=== PATIENT | male | born 1935 | race Caucasian/White ===

== ENCOUNTER 2021-04-24 20:25 | Inpatient (IN) ==
--- NOTE | 2021-04-24 22:09 | DR.GENAD ---
HPI Time Seen Time Seen by Provider: 04/24/21 22:07 PCP Primary Care Physician: GLYNN HPI Comment HPI Comment: He comes in with his c/o cough, fever and sob x five days; says he feels fine otherwise and denies body aches, cp, sob, abd pain, n/v/d; says he used otc test for covid and it was positive as was his 's. Complaint/Symptoms Chief Complaint:: PT IN ED WITH C/O TESTING POSITIVE FOR COVID TODAY. PT C/O COUGH, FEVER AND SOB. COVID-19 Coronavirus risk:travel/contact w/high risk person: Yes Has patient experienced Coronavirus symptoms: Yes Coronavirus symptoms experienced: Fever, Coughing and Shortness of Breath Source History Provided: Patient Mode of Arrival Mode of Arrival: Ambulatory Timing Onset of Chief Complaint: 04/21/21 PMH PMH Past Medical History: No Past Surgical History: No Surgical History: No History Family History History of Family Medical Conditions: Yes Family Medical History: Cancer and Hypertension Social History Does patient currently use any type of tobacco product: No Have you used tobacco products in the last 12 months: No Type of Tobacco Use: None Does any household member use tobacco: No Alcohol Use: None Do you use any recreational Drugs:: No Lives With: Spouse Lives Where: Home Travel Risk Coronavirus risk:travel/contact w/high risk person: Yes Has patient experienced Coronavirus symptoms: Yes Coronavirus symptoms experienced: Fever, Coughing and Shortness of Breath Infectious screening In the last 2 months have you had wt loss of >10#?: NO Have you had fever, night sweats or hemotysis?: No Have you traveled outside the country in the last 6 months?: No Isolation: Droplet ROS Review of Systems Eyes: No Symptoms Reported ENTM: No Symptoms Reported Cardiovascular: No Symptoms Reported Gastrointestinal/Abdominal: No Symptoms Reported Genitourinary: No Symptoms Reported Neurological: No Symptoms Reported Musculoskeletal: No Symptoms Reported Integumentary: No Symptoms Reported Hematologic/Lymphatic: No Symptoms Reported Endocrine: No Symptoms Reported Psychiatric: No Symptoms Reported PE Vital Signs Vitals: Temperature 100.3 F Pulse Rate [Right Brachial] 83 Pulse Rate 95 Respiratory Rate 22 Blood Pressure [Right Arm] 133/61 Blood Pressure 156/70 O2 Sat by Pulse Oximetry 89 General Limitations: No Limitations General Appearance: Alert and In No Apparent Distress Head Head Exam: Normal Inspection Eyes Eye exam: Normal Appearance Neck Neck Exam: Normal Inspection Chest Chest Inspection: Normal Inspection Respiratory Respiratory Exam: Bilateral: Wheezing (scattered) Cardiovascular Cardiovascular Exam: Regular Rate and Normal Rhythm Abdominal Exam Abdominal Exam: Normal Inspection, Normal Bowel Sounds and Soft Extremities Extremities Exam: Normal Inspection Back Back Exam: Normal Inspection Neurologic Neurological Exam: Alert and Oriented X3 Psychiatric Psychiatric Exam: Normal Affect and Normal Mood Skin Skin Exam: Warm, Dry, Intact and Normal Color COURSE Consultation Call Returned: 23:50 (Dr Wei accepts.) ROR Labs Reviewed Laboratory Results Reviewed?: Yes Result Diagrams: 04/24/21 22:16 04/24/21 22:16 Laboratory: WBC 8.2 X10^3/uL (3.6-10.0) 04/24/21 22:16 RBC 4.43 X10^6/uL (4.7-6.0) L 04/24/21 22:16 Hgb 14.5 g/dL (13.5-18.0) 04/24/21 22:16 Hct 40.6 % (42.0-54.0) L 04/24/21 22:16 MCV 91.5 fL (80.0-100.0) 04/24/21 22:16 MCH 32.8 pg (27.0-34.0) 04/24/21 22:16 MCHC 35.8 g/dL (33.0-35.0) H 04/24/21 22:16 RDW 13.4 % (11.6-16.5) 04/24/21 22:16 Plt Count 149 X10^3/uL (150.0-450.0) L 04/24/21 22:16 Plt Count Comment Decreased (ADEQUATE) 04/24/21 22:16 MPV 9.1 fL (7.4-11.0) 04/24/21 22:16 Neut % (Auto) 90.5 % (42.0-75.0) H 04/24/21 22:16 Lymph % (Auto) 5.7 % (21.0-51.0) L 04/24/21 22:16 [place] % (Auto) 3.6 % (0.0-13.0) 04/24/21 22:16 Eos % (Auto) 0.0 % (0.9-2.9) L 04/24/21 22:16 Baso % (Auto) 0.2 % (0.2-1.0) 04/24/21 22:16 Neut # (Auto) 7.4 x10^3/uL (2.2-4.8) H 04/24/21 22:16 Lymph # (Auto) 0.5 X10^3/uL (1.3-2.9) L 04/24/21 22:16 [place] # (Auto) 0.3 x10^3/uL (0.3-0.8) 04/24/21 22:16 Eos # (Auto) 0.0 x10^3/uL (0.0-0.2) 04/24/21 22:16 Baso # (Auto) 0.0 X10^3/uL (0.0-0.1) 04/24/21 22:16 Absolute Nucleated RBC 0.2 /100WBC 04/24/21 22:16 Total Counted 100 04/24/21 22:16 Neutrophils % (Manual) 90 % (39-76) H 04/24/21 22:16 Lymphocytes % (Manual) 8 % (13-43) L 04/24/21 22:16 Monocytes % (Manual) 2 % (4-9) L 04/24/21 22:16 Plt Morphology Comment Normal (NORMAL) 04/24/21 22:16 RBC Morphology Normal (NORMAL) 04/24/21 22:16 Sample Site Rr 04/24/21 22:07 ABG pH 7.540 (7.35-7.45) H 04/24/21 22:07 ABG pCO2 24.0 mmHg (35.0-45.0) L 04/24/21 22:07 ABG pO2 56.0 mmHg (80.0-100.0) L 04/24/21 22:07 ABG HCO3 20.5 mmol/L (22-26) L 04/24/21 22:07 ABG O2 Saturation 92.0 % (90-100) 04/24/21 22:07 ABG Base Excess -0.6 mmol/L (-2.0-2.0) 04/24/21 22:07 Jag Test Pos 04/24/21 22:07 A-a Gradient 64.0 mmHg 04/24/21 22:07 FiO2 21.0 04/24/21 22:07 Blood Gas Comments Terri well sw 04/24/21 22:07 Sodium 134 mmol/L (136-145) L 04/24/21 22:16 Corrected Sodium TNP 04/24/21 22:16 Potassium 3.6 mmol/L (3.5-5.1) 04/24/21 22:16 Chloride 99 mmol/L (98-107) 04/24/21 22:16 Carbon Dioxide 25.9 mmol/L (21-32) 04/24/21 22:16 BUN 14 mg/dL (7-18) 04/24/21 22:16 Creatinine 1.28 mg/dL (0.70-1.30) 04/24/21 22:16 Est GFR (MDRD) Af Amer > 60 (>60) 04/24/21 22:16 Est GFR (MDRD) Non-Af 57 (>60) L 04/24/21 22:16 Glucose 96 mg/dL (65-99) 04/24/21 22:16 Calcium 7.7 mg/dL (8.5-10.1) L 04/24/21 22:16 Corrected Calcium 8.7 mg/dL (8.5-10.1) 04/24/21 22:16 Total Bilirubin 0.50 mg/dL (0.2-1.0) 04/24/21 22:16 AST 72 Units/L (15-37) H 04/24/21 22:16 ALT 35 Units/L (12-78) 04/24/21 22:16 Alkaline Phosphatase 54 Units/L (46-116) 04/24/21 22:16 Total Protein 6.3 g/dL (6.4-8.2) L 04/24/21 22:16 Albumin 2.8 g/dL (3.4-5.0) L 04/24/21 22:16 Globulin 3.5 g/dL (2.5-4.5) 04/24/21 22:16 Albumin/Globulin Ratio 0.8 Ratio (1.1-2.1) L 04/24/21 22:16 SARS-CoV-2 (PCR) Positive (NEGATIVE) A 04/24/21 21:30 Influenza Type A (PCR) Negative (NEGATIVE) 04/24/21 21:30 Influenza Type B (PCR) Negative (NEGATIVE) 04/24/21 21:30 RSV (PCR) Negative (NEGATIVE) 04/24/21 21:30 XRAY XRAY Interpreted by: Radiologist X-ray Results: pcxr: 1. Bibasilar pneumonia greatest on the left. 2. COPD. Opioid Opioid Risk Tool Age (Esteban box if 16-45): No History of Preadolescent Sexual Abuse: No Total: 0 Total Score Risk Category: Low Risk Copyright: Mustapha LOPEZ predicting aberrant behaviors Diagnosis Discharge Problem: Hypoxia, COPD exacerbation Pneumonia Qualifiers: Pneumonia type: due to unspecified organism Laterality: bilateral Lung location: lower lobe of lung Qualified Code(s): J18.9 - Pneumonia, unspecified organism
[2021-04-24 22:45] LABS: BASOPHILS % (AUTO) 0.2 % (0.2-1.0); HEMATOCRIT 40.6 % (42.0-54.0); HEMOGLOBIN 14.5 g/dL (13.5-18.0); LYMPHOCYTES # (AUTO) 0.5 X10^3/uL (1.3-2.9); LYMPHOCYTES % (AUTO) 5.7 % (21.0-51.0); MEAN CORPUSCULAR HEMOGLOBIN 32.8 pg (27.0-34.0); MEAN CORPUSCULAR HGB CONC 35.8 g/dL (33.0-35.0); MEAN CORPUSCULAR VOLUME 91.5 fL (80.0-100.0); MEAN PLATELET VOLUME 9.1 fL (7.4-11.0); MONOCYTES # (AUTO) 0.3 x10^3/uL (0.3-0.8); MONOCYTES % (AUTO) 3.6 % (0.0-13.0); NEUTROPHILS # (AUTO) 7.4 x10^3/uL (2.2-4.8); NEUTROPHILS % (AUTO) 90.5 % (42.0-75.0); PLATELET COUNT 149 X10^3/uL (150.0-450.0); RED BLOOD COUNT 4.43 X10^6/uL (4.7-6.0); RED CELL DISTRIBUTION WIDTH 13.4 % (11.6-16.5); WHITE BLOOD COUNT 8.2 X10^3/uL (3.6-10.0)
[2021-04-24 22:52] LABS: ALANINE AMINOTRANSFERASE 35 Units/L (12-78); ALBUMIN 2.8 g/dL (3.4-5.0); ALKALINE PHOSPHATASE 54 Units/L (46-116); ASPARTATE AMINO TRANSFERASE 72 Units/L (15-37); BLOOD UREA NITROGEN 14 mg/dL (7-18); CALCIUM 7.7 mg/dL (8.5-10.1); CARBON DIOXIDE 25.9 mmol/L (21-32); CHLORIDE 99 mmol/L (98-107); COR CA(FOR HYPOALB) 8.7 mg/dL (8.5-10.1); CREATININE 1.28 mg/dL (0.70-1.30); SODIUM 134 mmol/L (136-145); TOTAL PROTEIN 6.3 g/dL (6.4-8.2); eGFR NON BLACK RACES 57 (>60)
--- NOTE | 2021-04-24 22:52 | RAD ---
PROCEDURE: Chest X-ray 1 View .HISTORY: Dyspnea and cough with COVID-19.TECHNIQUE: AP portable view done at 10:27 p.m..COMPARISON: None .TECHNICAL QUALITY: Satisfactory .FINDINGS:Normal size heart .Mediastinum and hilar regions show no masses or lymphadenopathy .Normal central vascularity .Moderate left basilar consolidation consistent with pneumonia. Possible mild consolidation right base laterally versus chest wall. Some hyperlucency upper lung valentine consistent with emphysematous changes. No pleural fluid, mass, or pneumothorax.No acute bony abnormality .IMPRESSION:1. Bibasilar pneumonia greatest on the left.2. COPD.Electronically signed by: Jhoan Moore (Apr 24, 2021 22:50:53)
[2021-04-24 22:53] LABS: ABG ALLEN TEST POS; ABG BASE EXCESS -0.6 mmol/L (-2.0-2.0); ABG HCO3 20.5 mmol/L (22-26)
[2021-04-24] MEDS ORDERED: ZOFRAN INJ 4 MG VIAL IVP PRN (23:57)
[2021-04-24] MEDS ORDERED: TYLENOL 325 MG TAB PO PRN (23:57)
[2021-04-25 00:06] LABS: PLATELET MORPHOLOGY COMMENT NORMAL (NORMAL)
[2021-04-25] MEDS ORDERED: NS 1000 ML 1,000 ML ONE (01:01)
[2021-04-25] MEDS: NS 1000 ML 1,000 ML IV SCH ×2 (01:20→11:49)
[2021-04-25] MEDS ORDERED: NS 100 ML IV + SPIKE MINIBAG* 100 ML IV ONE (01:23)
[2021-04-25] MEDS ORDERED: ZOSYN VIAL 2.25 GRAMS ONE (01:23)
[2021-04-25] MEDS: ZOSYN VIAL 2.25 GRAMS 2.25 G in NS 100 ML IV + SPIKE MINIBAG* 100 ML IV SCH ×4 (01:37→18:15)
[2021-04-25] MEDS: BROVANA IN SCH ×3 (02:37→21:00)
[2021-04-25] MEDS: PULMICORT NEB TX 0.5 MG NEB SCH ×3 (02:37→21:05)
[2021-04-25 06:05] LABS: BASOPHILS % (AUTO) 0.2 % (0.2-1.0); HEMATOCRIT 40.1 % (42.0-54.0); HEMOGLOBIN 14.1 g/dL (13.5-18.0); LYMPHOCYTES # (AUTO) 1.1 X10^3/uL (1.3-2.9); LYMPHOCYTES % (AUTO) 12.1 % (21.0-51.0); MEAN CORPUSCULAR HEMOGLOBIN 32.7 pg (27.0-34.0); MEAN CORPUSCULAR HGB CONC 35.1 g/dL (33.0-35.0); MEAN PLATELET VOLUME 9.6 fL (7.4-11.0); MONOCYTES # (AUTO) 0.3 x10^3/uL (0.3-0.8); NEUTROPHILS # (AUTO) 7.7 x10^3/uL (2.2-4.8); NEUTROPHILS % (AUTO) 84.7 % (42.0-75.0); PLATELET COUNT 148 X10^3/uL (150.0-450.0); RED BLOOD COUNT 4.31 X10^6/uL (4.7-6.0); RED CELL DISTRIBUTION WIDTH 13.3 % (11.6-16.5); WHITE BLOOD COUNT 9.2 X10^3/uL (3.6-10.0)
[2021-04-25 06:21] LABS: ALANINE AMINOTRANSFERASE 31 Units/L (12-78); ALBUMIN 2.5 g/dL (3.4-5.0); ALKALINE PHOSPHATASE 47 Units/L (46-116); ASPARTATE AMINO TRANSFERASE 69 Units/L (15-37); BLOOD UREA NITROGEN 15 mg/dL (7-18); CALCIUM 7.5 mg/dL (8.5-10.1); CARBON DIOXIDE 24.1 mmol/L (21-32); CHLORIDE 100 mmol/L (98-107); COR CA(FOR HYPOALB) 8.7 mg/dL (8.5-10.1); CREATININE 1.22 mg/dL (0.70-1.30); SODIUM 136 mmol/L (136-145); TOTAL PROTEIN 5.7 g/dL (6.4-8.2); eGFR NON BLACK RACES > 60 (>60)
[2021-04-25] MEDS ORDERED: REMDESIVIR 200 MG in NS 250 ML IV 250 ML IV ONE (10:07)
[2021-04-25] MEDS ORDERED: REMDESIVIR IV ONE (11:34)
[2021-04-25] MEDS ORDERED: NS 50 ML IV 50 ML IV ONE ×2 (11:34→15:25)
[2021-04-25] MEDS ORDERED: VITAMIN D3 125 mcg (5,000 UNITS) ONE (11:34)
[2021-04-25] MEDS ORDERED: ZINC SULFATE ONE (11:34)
[2021-04-25] MEDS ORDERED: ASCORBIC ACID INJ MULTI-DOSE VIAL IV ONE ×2 (11:36→15:27)
[2021-04-25] MEDS: ASCORBIC ACID INJ MULTI-DOSE VIAL 1,500 MG in NS 50 ML IV 50 ML IV SCH ×3 (11:47→20:59)
[2021-04-25] MEDS: SOLU-Medrol 125 MG VIAL IVP SCH ×3 (11:47→20:58)
[2021-04-25] MEDS: VITAMIN A PO SCH (11:47)
[2021-04-25] MEDS: ZINC SULFATE PO SCH (11:48)
[2021-04-25] MEDS: VITAMIN D3 125 mcg (5,000 UNITS) PO SCH (11:48)
[2021-04-25] MEDS ORDERED: SOLU-Medrol 40 MG VIAL ONE (15:25)
[2021-04-25] MEDS ORDERED: POTASSIUM CHL 40 MEQ/NS 0.45% 500 ML IV PRN (18:37)
[2021-04-25] MEDS ORDERED: POTASSIUM CHLORIDE LIQ 20 MEQ UDC PO PRN (18:37)
[2021-04-25] MEDS ORDERED: K-RIDER 10 MEQ/NS 100 ML 10 MEQ/100 ML BAG IV PRN (18:37)
[2021-04-25] MEDS ORDERED: MICRO K EXTEN CAP 10 MEQ PO PRN (18:37)
[2021-04-25] MEDS ORDERED: KLOR-CON PO PRN (18:37)
[2021-04-25] MEDS ORDERED: POTASSIUM CHL 60 MEQ/NS 0.45% 500 ML IV PRN (18:37)
[2021-04-25] MEDS: K-DUR TAB 20 MEQ PO PRN (20:57)
--- NOTE | 2021-04-25 21:11 | DR.H&P ---
H&P History & Physical for Day of: H&P Date: 04/25/21 Chief Complaint Chief Complaint: SOB and cough Allergies Allergies Allergy/AdvReac Type Severity Reaction Status Date / Time No Known Drug Allergies Allergy Verified 04/24/21 20:52 History of Present Illness History of Present Illness: Mr Fong is a 86y/o male with no pertinent past medical hx presented with worsening dyspnea, cough and weakness. Patient got sick a few days ago and tested positive for COVID yesterday. His was sick prior to him and also tested positive. Patient reports feeling weak and having some cough. Denies fever or chills. Patient is currently not on any medications. Family also present in room and states patient has not seen a doctor in years. He has no prior hx of covid and he is unvaccinated. ER work up - Labs: WBC 9.2 Hgb 14.1 Plt 148 Na: 136 K: 3.3 BUN/Cr: 15/1.22 COVID-19 + - AB.54/24/56/20 92% on RA - CXR: Bibasilar pneumonia greatest on the left. COPD. Patient is currently on 2L NC and he is no respiratory distress. He was started on IV antibiotics. Plan: Admit with COVID-19 protocol. Continue Zosyn, start Remdesivir and Solumedrol. Add vitamin support. Continue nebs, pulmicort and IS. Wean O2 as tolerated. Monitor respiratory status closely. Continue gentle hydration. Replace K as per protocol. PT/OT as tolerated. Monitor AM labs and imaging. Time spent for clinical assessment, reviewing labs/imaging, physical exam, decision making and documentation greater than 75 mins. Past Surgical History Surgical History: Ortho Surgery Family History Family Medical History: Cancer and Hypertension Social History Does patient currently use any type of tobacco product: No Have you used tobacco products in the last 12 months: No Type of Tobacco Use: None Does any household member use tobacco: No Alcohol Use: None Drug Use: None Prescription drug monitoring program results: PDMP reviewed and no concerns identified Medications Home Medications: No Known Drug Allergies Allergy (Verified 04/24/21 20:52) CONTINUE taking the following medications NK 04/24/21 [History] Labs Result Diagrams: 04/25/21 05:12 04/25/21 05:12 Labs: Laboratory WBC 9.2 X10^3/uL (3.6-10.0) 04/25/21 05:12 RBC 4.31 X10^6/uL (4.7-6.0) L 04/25/21 05:12 Hgb 14.1 g/dL (13.5-18.0) 04/25/21 05:12 Hct 40.1 % (42.0-54.0) L 04/25/21 05:12 MCV 93.0 fL (80.0-100.0) 04/25/21 05:12 MCH 32.7 pg (27.0-34.0) 04/25/21 05:12 MCHC 35.1 g/dL (33.0-35.0) H 04/25/21 05:12 RDW 13.3 % (11.6-16.5) 04/25/21 05:12 Plt Count 148 X10^3/uL (150.0-450.0) L 04/25/21 05:12 Plt Count Comment Decreased (ADEQUATE) 04/24/21 22:16 MPV 9.6 fL (7.4-11.0) 04/25/21 05:12 Neut % (Auto) 84.7 % (42.0-75.0) H 04/25/21 05:12 Lymph % (Auto) 12.1 % (21.0-51.0) L 04/25/21 05:12 [place] % (Auto) 3.0 % (0.0-13.0) 04/25/21 05:12 Eos % (Auto) 0.0 % (0.9-2.9) L 04/25/21 05:12 Baso % (Auto) 0.2 % (0.2-1.0) 04/25/21 05:12 Neut # (Auto) 7.7 x10^3/uL (2.2-4.8) H 04/25/21 05:12 Lymph # (Auto) 1.1 X10^3/uL (1.3-2.9) L 04/25/21 05:12 [place] # (Auto) 0.3 x10^3/uL (0.3-0.8) 04/25/21 05:12 Eos # (Auto) 0.0 x10^3/uL (0.0-0.2) 04/25/21 05:12 Baso # (Auto) 0.0 X10^3/uL (0.0-0.1) 04/25/21 05:12 Absolute Nucleated RBC 0.2 /100WBC 04/25/21 05:12 Total Counted 100 04/24/21 22:16 Neutrophils % (Manual) 90 % (39-76) H 04/24/21 22:16 Lymphocytes % (Manual) 8 % (13-43) L 04/24/21 22:16 Monocytes % (Manual) 2 % (4-9) L 04/24/21 22:16 Plt Morphology Comment Normal (NORMAL) 04/24/21 22:16 RBC Morphology Normal (NORMAL) 04/24/21 22:16 Sample Site Rr 04/24/21 22:07 ABG pH 7.540 (7.35-7.45) H 04/24/21 22:07 ABG pCO2 24.0 mmHg (35.0-45.0) L 04/24/21 22:07 ABG pO2 56.0 mmHg (80.0-100.0) L 04/24/21 22:07 ABG HCO3 20.5 mmol/L (22-26) L 04/24/21 22:07 ABG O2 Saturation 92.0 % (90-100) 04/24/21 22:07 ABG Base Excess -0.6 mmol/L (-2.0-2.0) 04/24/21 22:07 Jag Test Pos 04/24/21 22:07 A-a Gradient 64.0 mmHg 04/24/21 22:07 FiO2 21.0 04/24/21 22:07 Blood Gas Comments Terri well sw 04/24/21 22:07 Sodium 136 mmol/L (136-145) 04/25/21 05:12 Corrected Sodium TNP 04/25/21 05:12 Potassium 3.3 mmol/L (3.5-5.1) L 04/25/21 05:12 Chloride 100 mmol/L (98-107) 04/25/21 05:12 Carbon Dioxide 24.1 mmol/L (21-32) 04/25/21 05:12 BUN 15 mg/dL (7-18) 04/25/21 05:12 Creatinine 1.22 mg/dL (0.70-1.30) 04/25/21 05:12 Est GFR (MDRD) Af Amer > 60 (>60) 04/25/21 05:12 Est GFR (MDRD) Non-Af > 60 (>60) 04/25/21 05:12 Glucose 95 mg/dL (65-99) 04/25/21 05:12 Calcium 7.5 mg/dL (8.5-10.1) L 04/25/21 05:12 Corrected Calcium 8.7 mg/dL (8.5-10.1) 04/25/21 05:12 Total Bilirubin 0.60 mg/dL (0.2-1.0) 04/25/21 05:12 AST 69 Units/L (15-37) H 04/25/21 05:12 ALT 31 Units/L (12-78) 04/25/21 05:12 Alkaline Phosphatase 47 Units/L (46-116) 04/25/21 05:12 Total Protein 5.7 g/dL (6.4-8.2) L 04/25/21 05:12 Albumin 2.5 g/dL (3.4-5.0) L 04/25/21 05:12 Globulin 3.2 g/dL (2.5-4.5) 04/25/21 05:12 Albumin/Globulin Ratio 0.8 Ratio (1.1-2.1) L 04/25/21 05:12 SARS-CoV-2 (PCR) Positive (NEGATIVE) A 04/24/21 21:30 Influenza Type A (PCR) Negative (NEGATIVE) 04/24/21 21:30 Influenza Type B (PCR) Negative (NEGATIVE) 04/24/21 21:30 RSV (PCR) Negative (NEGATIVE) 04/24/21 21:30 Review of Systems Constitutional: Weakness and Malaise Eyes: No Symptoms Reported ENT: No Symptoms Reported Respiratory: Cough and Shortness of Breath Cardiovascular: No Symptoms Reported Gastrointestinal: Other (decreased appetite, loss of taste ) Genitourinary: No Symptoms Reported Musculoskeletal: Back Pain Skin: No Symptoms Reported Neurological: No Symptoms Reported Physical Exam Vital Signs: Temperature 97.8 F Pulse Rate [Right Brachial] 92 Pulse Rate 79 Respiratory Rate 18 Blood Pressure [Right Arm] 143/71 Blood Pressure 156/70 O2 Sat by Pulse Oximetry 93 Oriented: Normal Eyes: Normal Ear: Normal Nose: Normal Throat: Normal Respiratory: Diminished Throughout Cardiovascular: Normal Auscultation: Bowel Sounds: Normal Palpation: Normal Tenderness: Normal Skin: Decreased [place] Musculoskeletal: Normal Psychiatric: Normal Mood Description: Calm and Appropriate Affect: Normal Speech Pattern: Clear and Appropriate Assessment/Plan (1) Pneumonia due to COVID-19 virus: Status: Acute (2) Hypokalemia: Status: Acute (3) Acute respiratory failure with hypoxia: Status: Acute (4) Dehydration: Status: Acute Review H&P Reviewed: Yes Patient was examined?: Yes
[2021-04-26] MEDS: NS 1000 ML 1,000 ML IV SCH ×4 (01:38→20:30)
[2021-04-26] MEDS: ZOSYN VIAL 2.25 GRAMS 2.25 G in NS 100 ML IV + SPIKE MINIBAG* 100 ML IV SCH ×5 (02:00→19:39)
[2021-04-26] MEDS ORDERED: ASCORBIC ACID INJ MULTI-DOSE VIAL IV ONE ×3 (02:19→16:01)
[2021-04-26] MEDS ORDERED: NS 50 ML IV 50 ML IV ONE (02:20)
[2021-04-26] MEDS: ASCORBIC ACID INJ MULTI-DOSE VIAL 1,500 MG in NS 50 ML IV 50 ML IV SCH ×4 (02:24→20:31)
[2021-04-26 04:45] LABS: BASOPHILS % (AUTO) 0.1 % (0.2-1.0); HEMATOCRIT 41.2 % (42.0-54.0); HEMOGLOBIN 14.5 g/dL (13.5-18.0); LYMPHOCYTES # (AUTO) 0.6 X10^3/uL (1.3-2.9); LYMPHOCYTES % (AUTO) 6.8 % (21.0-51.0); MEAN CORPUSCULAR HEMOGLOBIN 32.5 pg (27.0-34.0); MEAN CORPUSCULAR HGB CONC 35.1 g/dL (33.0-35.0); MEAN CORPUSCULAR VOLUME 92.6 fL (80.0-100.0); MEAN PLATELET VOLUME 9.3 fL (7.4-11.0); MONOCYTES # (AUTO) 0.3 x10^3/uL (0.3-0.8); MONOCYTES % (AUTO) 3.1 % (0.0-13.0); NEUTROPHILS # (AUTO) 7.8 x10^3/uL (2.2-4.8); PLATELET COUNT 167 X10^3/uL (150.0-450.0); RED BLOOD COUNT 4.45 X10^6/uL (4.7-6.0); RED CELL DISTRIBUTION WIDTH 13.5 % (11.6-16.5); WHITE BLOOD COUNT 8.6 X10^3/uL (3.6-10.0)
[2021-04-26 04:47] LABS: ABG ALLEN TEST POS; ABG BASE EXCESS -0.3 mmol/L (-2.0-2.0); ABG HCO3 22.6 mmol/L (22-26)
[2021-04-26 05:01] LABS: ALANINE AMINOTRANSFERASE 30 Units/L (12-78); ALBUMIN 2.3 g/dL (3.4-5.0); ALKALINE PHOSPHATASE 47 Units/L (46-116); ASPARTATE AMINO TRANSFERASE 63 Units/L (15-37); BLOOD UREA NITROGEN 14 mg/dL (7-18); CARBON DIOXIDE 23.8 mmol/L (21-32); CHLORIDE 108 mmol/L (98-107); COR CA(FOR HYPOALB) 9.4 mg/dL (8.5-10.1); COR NA(FOR HYPERGLY) 143 mmol/L (136-145); CREATININE 0.99 mg/dL (0.70-1.30); SODIUM 142 mmol/L (136-145); TOTAL PROTEIN 5.9 g/dL (6.4-8.2); eGFR NON BLACK RACES > 60 (>60)
[2021-04-26] MEDS: SOLU-Medrol 125 MG VIAL IVP SCH (06:00)
[2021-04-26] MEDS ORDERED: NS 100 ML IV 100 ML ONE ×2 (06:11→09:34)
--- NOTE | 2021-04-26 06:14 | RAD ---
HISTORYFollow-up COVID-19STUDYChest AP [id number] heart is enlarged. No congestive heart failure is noted. Increasing bilateral perihilar interstitial and ground-glass infiltrates are present when compared to the prior examination. No pleural effusions are identified. No pneumothoraces are present. Bony thorax is unremarkable.IMPRESSIONIncreasing bilateral perihilar interstitial and ground-glass infiltrates when compared to the prior examinationMild cardiomegaly without congestive heart failureElectronically signed by: PRUDENCE GALLEGOS (Apr 26, 2021 06:12:44)
[2021-04-26] MEDS: BROVANA IN SCH ×2 (09:00→21:07)
[2021-04-26] MEDS: PULMICORT NEB TX 0.5 MG NEB SCH ×2 (09:00→21:12)
[2021-04-26] MEDS ORDERED: LOVENOX INJ 60 MG SYR SC ONE (09:55)
[2021-04-26] MEDS ORDERED: VITAMIN D3 125 mcg (5,000 UNITS) ONE (09:55)
[2021-04-26] MEDS ORDERED: ZINC SULFATE ONE (09:55)
[2021-04-26] MEDS: LOVENOX INJ 30 MG SYR SC SCH ×2 (09:56→20:34)
[2021-04-26] MEDS: VITAMIN A PO SCH (09:57)
[2021-04-26] MEDS: VITAMIN D3 125 mcg (5,000 UNITS) PO SCH (09:57)
[2021-04-26] MEDS: ZINC SULFATE PO SCH (09:58)
[2021-04-26] MEDS ORDERED: NS 250 ML IV 250 ML IV ONE ×2 (13:05→16:00)
[2021-04-26] MEDS ORDERED: ZOSYN VIAL 3.375 GRAMS IV ONE (13:05)
[2021-04-26] MEDS ORDERED: SOLU-Medrol 40 MG VIAL ONE (13:05)
[2021-04-26] MEDS ORDERED: NS 100 ML IV + SPIKE MINIBAG* 100 ML IV ONE (13:05)
[2021-04-26] MEDS ORDERED: REMDESIVIR IV ONE (13:05)
[2021-04-26] MEDS: REMDESIVIR 100 MG in NS 250 ML IV 250 ML IV SCH (13:10)
[2021-04-26] MEDS: SOLU-Medrol 40 MG VIAL IVP SCH ×2 (13:30→21:00)
[2021-04-26] MEDS: ZOSYN VIAL 3.375 GRAMS 3.375 G in NS 100 ML IV + SPIKE MINIBAG* 100 ML IV SCH ×2 (14:50→21:45)
[2021-04-26] MEDS ORDERED: CATAPRES-TTS-1 TD SCH (19:00)
[2021-04-27] MEDS: ASCORBIC ACID INJ MULTI-DOSE VIAL 1,500 MG in NS 50 ML IV 50 ML IV SCH ×4 (02:02→20:29)
[2021-04-27] MEDS: NS 1000 ML 1,000 ML IV SCH ×2 (03:11→20:26)
[2021-04-27] MEDS: SOLU-Medrol 40 MG VIAL IVP SCH ×3 (05:03→21:00)
[2021-04-27] MEDS: ZOSYN VIAL 3.375 GRAMS 3.375 G in NS 100 ML IV + SPIKE MINIBAG* 100 ML IV SCH ×3 (05:03→21:46)
[2021-04-27 06:01] LABS: BASOPHILS % (AUTO) 0.1 % (0.2-1.0); EOSINOPHILS % (AUTO) 0.1 % (0.9-2.9); HEMATOCRIT 40.5 % (42.0-54.0); LYMPHOCYTES # (AUTO) 0.5 X10^3/uL (1.3-2.9); LYMPHOCYTES % (AUTO) 4.3 % (21.0-51.0); MEAN CORPUSCULAR HEMOGLOBIN 32.2 pg (27.0-34.0); MEAN CORPUSCULAR HGB CONC 34.4 g/dL (33.0-35.0); MEAN CORPUSCULAR VOLUME 93.6 fL (80.0-100.0); MEAN PLATELET VOLUME 9.4 fL (7.4-11.0); MONOCYTES # (AUTO) 0.5 x10^3/uL (0.3-0.8); MONOCYTES % (AUTO) 4.4 % (0.0-13.0); NEUTROPHILS % (AUTO) 91.1 % (42.0-75.0); PLATELET COUNT 213 X10^3/uL (150.0-450.0); RED BLOOD COUNT 4.33 X10^6/uL (4.7-6.0); RED CELL DISTRIBUTION WIDTH 13.4 % (11.6-16.5); WHITE BLOOD COUNT 12.1 X10^3/uL (3.6-10.0)
[2021-04-27 06:30] LABS: ALANINE AMINOTRANSFERASE 28 Units/L (12-78); ALBUMIN 2.2 g/dL (3.4-5.0); ALKALINE PHOSPHATASE 49 Units/L (46-116); ASPARTATE AMINO TRANSFERASE 44 Units/L (15-37); BLOOD UREA NITROGEN 17 mg/dL (7-18); CALCIUM 7.8 mg/dL (8.5-10.1); CARBON DIOXIDE 24.9 mmol/L (21-32); CHLORIDE 109 mmol/L (98-107); COR CA(FOR HYPOALB) 9.2 mg/dL (8.5-10.1); COR NA(FOR HYPERGLY) 145 mmol/L (136-145); CREATININE 0.96 mg/dL (0.70-1.30); SODIUM 144 mmol/L (136-145); TOTAL PROTEIN 5.5 g/dL (6.4-8.2); eGFR NON BLACK RACES > 60 (>60)
--- NOTE | 2021-04-27 06:30 | RAD ---
HISTORYFollow-up COVID-19, shortness of breathSTUDYChest AP [id number] heart remains enlarged. No congestive heart failure is noted. Diffuse bilateral interstitial and ground-glass infiltrates predominantly in a perihilar distribution unchanged. No pleural effusions are identified. No pneumothoraces are present. Bony thorax is unremarkable.IMPRESSIONNo change bilateral perihilar interstitial and ground-glass infiltrates when compared to the prior examinationMild cardiomegaly without congestive heart failure also unchangedElectronically signed by: PRUDENCE GALLEGOS (Apr 27, 2021 06:28:24)
[2021-04-27] MEDS: K-DUR TAB 20 MEQ PO PRN (06:46)
[2021-04-27 06:57] LABS: BAND NEUTROPHILS % 5 % (0-10); METAMYELOCYTES % 2; PLATELET MORPHOLOGY COMMENT NORMAL (NORMAL)
[2021-04-27] MEDS: BROVANA IN SCH ×2 (09:00→21:05)
[2021-04-27] MEDS: PULMICORT NEB TX 0.5 MG NEB SCH ×2 (09:00→21:05)
[2021-04-27] MEDS: REMDESIVIR 100 MG in NS 250 ML IV 250 ML IV SCH (09:11)
[2021-04-27] MEDS: VITAMIN D3 125 mcg (5,000 UNITS) PO SCH (09:11)
[2021-04-27] MEDS: ZINC SULFATE PO SCH (09:11)
[2021-04-27] MEDS: LOVENOX INJ 30 MG SYR SC SCH ×2 (09:13→20:31)
[2021-04-27] MEDS: VITAMIN A PO SCH (09:13)
--- NOTE | 2021-04-27 13:22 | PCM.PROG ---
Progress Note - Progress Note for Day of Date of Exam: 04/26/21 - Subjective Subjective: WAS ADMITTED FOR TREATMENT OF PNEUMONIA DUE TO COVID-19, ACUTE RESPIRATORY FAILURE WITH HYPOXIA, DEHYDRATION, AND HYPOKALEMIA. HE DENIES PERTINENT PMH. TODAY, HE IS ALERT AND OREINTED, SITTING UP IN BED ON MORNING ROUNDS. HE REPORTS PERSISTENT COUGH AND SHORTNESS OF BREATH TODAY. HE HAS BEEN ON OXYGEN VIA NASAL CANNULA AT 4 LITERS/MINUTE. OXYGEN SATURATIONS HAVE REMAINED 90-99%. ON EXAMINATION, HEART IS REGULAR IN RATE AND RHYTHM. BILATERAL LUNGS NOTED WITH DIMINISHED LUNG SOUNDS THROUGHOUT. ABDOMEN IS ROUND, SOFT, AND NON- TENDER WITH NORMAL BOWEL SOUNDS NOTED IN ALL QUADRANTS. HER VITALS THIS MORNING ARE: 97.8-82-24-96%-175/77. LABS WERE OBTAINED. ABNORMAL LAB VALUES INCLUDE THE FOLLOWING: RBC 4.45, HCT 41.2, D-DIMER 0.98, POTASSIUM 3.4, CHLORIDE 109, GLUCOSE 158, CALCIUM 7.8, FERRITIN 2139, AST 44, CRP 61.90, BNP 147, TOTAL PROTEIN 5.5, ALBUMIN 2.2. BLOOD CULTURES PENDING. CHEST XRAY REVEALED: No change bilateral peripheral ground-glass infiltrates. No change mild cardiomegaly without congestive heart failure. WE WILL CONTINUE WITH REMDESIVIR, RESPIRATORY TX, NEB TX, ANTIBIOTICS, SOLU-MEDROL, AND CURRENT PLAN OF CARE TODAY. OTHERWISE, WE PLAN TO FOLLOW UP WITH AM LABS AND CHEST XRAY AND CONTINUE TO MONITOR. TIME SPENT ON CLINICAL ASSESSMENT, REVIEWING LABS AND IMAGING, DECISION MAKING, AND DOCUMENTATION GREATER THAN 45 MINUTES. - Past Medical Family Social History Past Med/Fam/Surg Hx: No changes since H&P Allergies: Allergies iodine Allergy (Verified 04/26/21 06:23) - Review of Systems ROS: No change since H&P - Vital Signs and I&O's Vital Signs: Temperature 97.7 F Pulse Rate [Right Brachial] 84 Pulse Rate 75 Respiratory Rate 20 Blood Pressure [Left Arm] 138/59 Blood Pressure [Right Arm] 181/86 Blood Pressure 156/70 O2 Sat by Pulse Oximetry 92 Intake and Output: Intake & Output 04/25/21 04/26/21 04/27/21 04/28/21 11:59 11:59 11:59 11:59 Intake Total 900 / 900 1942 / 1942 3401 / 3401 Output Total 2200 / 2200 565 / 565 Balance 900 / 900 -258 / -258 2836 / 2836 - Physical Exam Oriented: Normal Eyes: Normal Ear: Normal Nose: Normal Throat: Normal Respiratory: Generalized, Diminished, Rales Cardiovascular: Normal : Normal Auscultation: Bowel Sounds: Normal Palpation: Normal Tenderness: Normal Skin: Decreased [place] Musculoskeletal: Normal Psychiatric: Normal Mood Description: Calm, Appropriate Affect: Normal Speech Pattern: Clear, Appropriate - Laboratory and Diagnostics Result Diagrams: 04/27/21 05:20 04/27/21 09:15 Labs: Laboratory WBC 12.1 X10^3/uL (3.6-10.0) H 04/27/21 05:20 RBC 4.33 X10^6/uL (4.7-6.0) L 04/27/21 05:20 Hgb 14.0 g/dL (13.5-18.0) 04/27/21 05:20 Hct 40.5 % (42.0-54.0) L 04/27/21 05:20 MCV 93.6 fL (80.0-100.0) 04/27/21 05:20 MCH 32.2 pg (27.0-34.0) 04/27/21 05:20 MCHC 34.4 g/dL (33.0-35.0) 04/27/21 05:20 RDW 13.4 % (11.6-16.5) 04/27/21 05:20 Plt Count 213 X10^3/uL (150.0-450.0) 04/27/21 05:20 Plt Count Comment Adequate (ADEQUATE) 04/27/21 05:20 MPV 9.4 fL (7.4-11.0) 04/27/21 05:20 Neut % (Auto) 91.1 % (42.0-75.0) H 04/27/21 05:20 Lymph % (Auto) 4.3 % (21.0-51.0) L 04/27/21 05:20 [place] % (Auto) 4.4 % (0.0-13.0) 04/27/21 05:20 Eos % (Auto) 0.1 % (0.9-2.9) L 04/27/21 05:20 Baso % (Auto) 0.1 % (0.2-1.0) L 04/27/21 05:20 Neut # (Auto) 11.0 x10^3/uL (2.2-4.8) H 04/27/21 05:20 Lymph # (Auto) 0.5 X10^3/uL (1.3-2.9) L 04/27/21 05:20 [place] # (Auto) 0.5 x10^3/uL (0.3-0.8) 04/27/21 05:20 Eos # (Auto) 0.0 x10^3/uL (0.0-0.2) 04/27/21 05:20 Baso # (Auto) 0.0 X10^3/uL (0.0-0.1) 04/27/21 05:20 Absolute Nucleated RBC 0.1 /100WBC 04/27/21 05:20 Total Counted 100 04/27/21 05:20 Neutrophils % (Manual) 85 % (39-76) H 04/27/21 05:20 Band Neutrophils % 5 % (0-10) 04/27/21 05:20 Lymphocytes % (Manual) 3 % (13-43) L 04/27/21 05:20 Monocytes % (Manual) 5 % (4-9) 04/27/21 05:20 Metamyelocytes % 2 04/27/21 05:20 Plt Morphology Comment Normal (NORMAL) 04/27/21 05:20 RBC Morphology Normal (NORMAL) 04/27/21 05:20 D-Dimer 0.58 ug/ml (0.0-0.57) H* 04/27/21 05:20 Sample Site Rra 04/26/21 04:43 ABG pH 7.470 (7.35-7.45) H 04/26/21 04:43 ABG pCO2 31.0 mmHg (35.0-45.0) L 04/26/21 04:43 ABG pO2 70.0 mmHg (80.0-100.0) L 04/26/21 04:43 ABG HCO3 22.6 mmol/L (22-26) 04/26/21 04:43 ABG O2 Saturation 95.0 % (90-100) 04/26/21 04:43 ABG Base Excess -0.3 mmol/L (-2.0-2.0) 04/26/21 04:43 Jag Test Pos 04/26/21 04:43 A-a Gradient 119.0 mmHg 04/26/21 04:43 FiO2 32.0 04/26/21 04:43 Blood Gas Comments Terri well mts 04/26/21 04:43 Sodium 144 mmol/L (136-145) 04/27/21 05:20 Corrected Sodium 145 mmol/L (136-145) 04/27/21 05:20 Potassium 3.2 mmol/L (3.5-5.1) L 04/27/21 09:15 Chloride 109 mmol/L (98-107) H 04/27/21 05:20 Carbon Dioxide 24.9 mmol/L (21-32) 04/27/21 05:20 BUN 17 mg/dL (7-18) 04/27/21 05:20 Creatinine 0.96 mg/dL (0.70-1.30) 04/27/21 05:20 Est GFR (MDRD) Af Amer > 60 (>60) 04/27/21 05:20 Est GFR (MDRD) Non-Af > 60 (>60) 04/27/21 05:20 Glucose 158 mg/dL (65-99) H 04/27/21 05:20 Calcium 7.8 mg/dL (8.5-10.1) L 04/27/21 05:20 Corrected Calcium 9.2 mg/dL (8.5-10.1) 04/27/21 05:20 Ferritin 2139 ng/mL (26-388) H 04/27/21 05:20 Total Bilirubin 0.30 mg/dL (0.2-1.0) 04/27/21 05:20 AST 44 Units/L (15-37) H 04/27/21 05:20 ALT 28 Units/L (12-78) 04/27/21 05:20 Alkaline Phosphatase 49 Units/L (46-116) 04/27/21 05:20 C-Reactive Protein 61.90 mg/L (0-3.0) H 04/27/21 05:20 B-Natriuretic Peptide 147 pg/mL (0-79) H 04/27/21 05:20 Total Protein 5.5 g/dL (6.4-8.2) L 04/27/21 05:20 Albumin 2.2 g/dL (3.4-5.0) L 04/27/21 05:20 Globulin 3.3 g/dL (2.5-4.5) 04/27/21 05:20 Albumin/Globulin Ratio 0.7 Ratio (1.1-2.1) L 04/27/21 05:20 SARS-CoV-2 (PCR) Positive (NEGATIVE) A 04/24/21 21:30 Influenza Type A (PCR) Negative (NEGATIVE) 04/24/21 21:30 Influenza Type B (PCR) Negative (NEGATIVE) 04/24/21 21:30 RSV (PCR) Negative (NEGATIVE) 04/24/21 21:30 - Plan (1) Pneumonia due to COVID-19 virus Status: Acute (2) Acute respiratory failure with hypoxia Status: Acute (3) Dehydration Status: Acute (4) Hypokalemia Status: Acute
[2021-04-27] MEDS: AVODART PO SCH (13:37)
[2021-04-27] MEDS: FLUVOXAMINE MALEATE PO SCH ×2 (13:39→20:32)
[2021-04-27] MEDS: IVERMECTIN PO SCH (13:40)
[2021-04-27] MEDS: ROBITUSSIN DM PO SCH ×3 (13:41→20:30)
[2021-04-27] MEDS: PEPCID TAB 20 MG PO SCH ×2 (13:41→20:33)
[2021-04-27] MEDS: PROTONIX TAB 40 MG PO SCH ×2 (13:42→20:33)
[2021-04-27] MEDS: TESSALON PERLES PO SCH ×2 (13:51→21:00)
[2021-04-27] MEDS: PERIACTIN TAB 4 MG PO SCH ×2 (13:51→21:00)
[2021-04-27] MEDS: LIPITOR TAB 80 MG PO SCH (20:32)
[2021-04-27] MEDS: MELATONIN PO SCH (20:32)
[2021-04-27] MEDS: SINGULAIR TAB 10 MG PO SCH (20:34)
--- NOTE | 2021-04-27 21:45 | PCM.PROG ---
Progress Note - Progress Note for Day of Date of Exam: 04/27/21 - Subjective Subjective: WAS ADMITTED FOR TREATMENT OF PNEUMONIA DUE TO COVID-19, ACUTE RESPIRATORY FAILURE WITH HYPOXIA, DEHYDRATION, AND HYPOKALEMIA. HE DENIES PERTINENT PMH. TODAY, HE IS ALERT AND OREINTED, SITTING UP IN BED ON MORNING ROUNDS. HE REPORTS PERSISTENT COUGH AND SHORTNESS OF BREATH TODAY. HE HAS BEEN ON OXYGEN VIA NASAL CANNULA AT 4 LITERS/MINUTE. OXYGEN SATURATIONS HAVE REMAINED 90-99%. ON EXAMINATION, HEART IS REGULAR IN RATE AND RHYTHM. BILATERAL LUNGS NOTED WITH DIMINISHED LUNG SOUNDS THROUGHOUT. ABDOMEN IS ROUND, SOFT, AND NON- TENDER WITH NORMAL BOWEL SOUNDS NOTED IN ALL QUADRANTS. HER VITALS THIS MORNING ARE: 97.7-72-20-94%-154/79. LABS WERE OBTAINED. ABNORMAL LAB VALUES INCLUDE THE FOLLOWING: WBC 12.1, RBC 4.33, HCT 40.5, D-DIMER 0.58, POTASSIUM 3.4, CHLORIDE 109, GLUCOSE 158, CALCIUM 7.8, FERRITIN 2139, AST 44, CRP 61.90, BNP 147, TOTAL PROTEIN 5.5, ALBUMIN 2.2. BLOOD CULTURES PENDING. CHEST XRAY REVEALED: No change bilateral perihilar interstitial and ground-glass infiltrates when compared to the prior examination. Mild cardiomegaly without congestive heart failure also unchanged. WE WILL CONTINUE WITH REMDESIVIR, RESPIRATORY TX, NEB TX, ANTIBIOTICS, SOLU-MEDROL, AND CURRENT PLAN OF CARE TODAY. OTHERWISE, WE PLAN TO FOLLOW UP WITH AM LABS AND CHEST XRAY AND CONTINUE TO MONITOR. TIME SPENT ON CLINICAL ASSESSMENT, REVIEWING LABS AND IMAGING, DECISION MAKING, AND DOCUMENTATION GREATER THAN 45 MINUTES. - Past Medical Family Social History Past Med/Fam/Surg Hx: No changes since H&P Allergies: Allergies iodine Allergy (Verified 04/26/21 06:23) - Review of Systems ROS: No change since H&P - Vital Signs and I&O's Vital Signs: Temperature 97.7 F Pulse Rate [Right Brachial] 65 Pulse Rate 75 Respiratory Rate 20 Blood Pressure [Left Arm] 138/59 Blood Pressure [Right Arm] 168/74 Blood Pressure 156/70 O2 Sat by Pulse Oximetry 92 Intake and Output: Intake & Output 04/25/21 04/26/21 04/27/21 04/28/21 11:59 11:59 11:59 11:59 Intake Total 900 / 900 1941 / 1941 3401 / 3401 1931 / 1931 Output Total 2200 / 2200 565 / 565 950 / 950 Balance 900 / 900 -258 / -258 2836 / 2836 982 / 982 - Physical Exam Oriented: Normal Eyes: Normal Ear: Normal Nose: Normal Throat: Normal Respiratory: Generalized, Diminished, Rales Cardiovascular: Normal : Normal Auscultation: Bowel Sounds: Normal Tenderness: Normal Skin: Decreased Turgur Musculoskeletal: Normal Psychiatric: Normal Mood Description: Calm, Appropriate Affect: Normal Speech Pattern: Clear, Appropriate - Laboratory and Diagnostics Result Diagrams: 04/27/21 05:20 04/27/21 09:15 Labs: Laboratory WBC 12.1 X10^3/uL (3.6-10.0) H 04/27/21 05:20 RBC 4.33 X10^6/uL (4.7-6.0) L 04/27/21 05:20 Hgb 14.0 g/dL (13.5-18.0) 04/27/21 05:20 Hct 40.5 % (42.0-54.0) L 04/27/21 05:20 MCV 93.6 fL (80.0-100.0) 04/27/21 05:20 MCH 32.2 pg (27.0-34.0) 04/27/21 05:20 MCHC 34.4 g/dL (33.0-35.0) 04/27/21 05:20 RDW 13.4 % (11.6-16.5) 04/27/21 05:20 Plt Count 213 X10^3/uL (150.0-450.0) 04/27/21 05:20 Plt Count Comment Adequate (ADEQUATE) 04/27/21 05:20 MPV 9.4 fL (7.4-11.0) 04/27/21 05:20 Neut % (Auto) 91.1 % (42.0-75.0) H 04/27/21 05:20 Lymph % (Auto) 4.3 % (21.0-51.0) L 04/27/21 05:20 [place] % (Auto) 4.4 % (0.0-13.0) 04/27/21 05:20 Eos % (Auto) 0.1 % (0.9-2.9) L 04/27/21 05:20 Baso % (Auto) 0.1 % (0.2-1.0) L 04/27/21 05:20 Neut # (Auto) 11.0 x10^3/uL (2.2-4.8) H 04/27/21 05:20 Lymph # (Auto) 0.5 X10^3/uL (1.3-2.9) L 04/27/21 05:20 [place] # (Auto) 0.5 x10^3/uL (0.3-0.8) 04/27/21 05:20 Eos # (Auto) 0.0 x10^3/uL (0.0-0.2) 04/27/21 05:20 Baso # (Auto) 0.0 X10^3/uL (0.0-0.1) 04/27/21 05:20 Absolute Nucleated RBC 0.1 /100WBC 04/27/21 05:20 Total Counted 100 04/27/21 05:20 Neutrophils % (Manual) 85 % (39-76) H 04/27/21 05:20 Band Neutrophils % 5 % (0-10) 04/27/21 05:20 Lymphocytes % (Manual) 3 % (13-43) L 04/27/21 05:20 Monocytes % (Manual) 5 % (4-9) 04/27/21 05:20 Metamyelocytes % 2 04/27/21 05:20 Plt Morphology Comment Normal (NORMAL) 04/27/21 05:20 RBC Morphology Normal (NORMAL) 04/27/21 05:20 D-Dimer 0.58 ug/ml (0.0-0.57) H* 04/27/21 05:20 Sample Site Rra 04/26/21 04:43 ABG pH 7.470 (7.35-7.45) H 04/26/21 04:43 ABG pCO2 31.0 mmHg (35.0-45.0) L 04/26/21 04:43 ABG pO2 70.0 mmHg (80.0-100.0) L 04/26/21 04:43 ABG HCO3 22.6 mmol/L (22-26) 04/26/21 04:43 ABG O2 Saturation 95.0 % (90-100) 04/26/21 04:43 ABG Base Excess -0.3 mmol/L (-2.0-2.0) 04/26/21 04:43 Jag Test Pos 04/26/21 04:43 A-a Gradient 119.0 mmHg 04/26/21 04:43 FiO2 32.0 04/26/21 04:43 Blood Gas Comments Terri well mts 04/26/21 04:43 Sodium 144 mmol/L (136-145) 04/27/21 05:20 Corrected Sodium 145 mmol/L (136-145) 04/27/21 05:20 Potassium 3.2 mmol/L (3.5-5.1) L 04/27/21 09:15 Chloride 109 mmol/L (98-107) H 04/27/21 05:20 Carbon Dioxide 24.9 mmol/L (21-32) 04/27/21 05:20 BUN 17 mg/dL (7-18) 04/27/21 05:20 Creatinine 0.96 mg/dL (0.70-1.30) 04/27/21 05:20 Est GFR (MDRD) Af Amer > 60 (>60) 04/27/21 05:20 Est GFR (MDRD) Non-Af > 60 (>60) 04/27/21 05:20 Glucose 158 mg/dL (65-99) H 04/27/21 05:20 Calcium 7.8 mg/dL (8.5-10.1) L 04/27/21 05:20 Corrected Calcium 9.2 mg/dL (8.5-10.1) 04/27/21 05:20 Ferritin 2139 ng/mL (26-388) H 04/27/21 05:20 Total Bilirubin 0.30 mg/dL (0.2-1.0) 04/27/21 05:20 AST 44 Units/L (15-37) H 04/27/21 05:20 ALT 28 Units/L (12-78) 04/27/21 05:20 Alkaline Phosphatase 49 Units/L (46-116) 04/27/21 05:20 C-Reactive Protein 61.90 mg/L (0-3.0) H 04/27/21 05:20 B-Natriuretic Peptide 147 pg/mL (0-79) H 04/27/21 05:20 Total Protein 5.5 g/dL (6.4-8.2) L 04/27/21 05:20 Albumin 2.2 g/dL (3.4-5.0) L 04/27/21 05:20 Globulin 3.3 g/dL (2.5-4.5) 04/27/21 05:20 Albumin/Globulin Ratio 0.7 Ratio (1.1-2.1) L 04/27/21 05:20 SARS-CoV-2 (PCR) Positive (NEGATIVE) A 04/24/21 21:30 Influenza Type A (PCR) Negative (NEGATIVE) 04/24/21 21:30 Influenza Type B (PCR) Negative (NEGATIVE) 04/24/21 21:30 RSV (PCR) Negative (NEGATIVE) 04/24/21 21:30 - Plan (1) Pneumonia due to COVID-19 virus Status: Acute (2) Acute respiratory failure with hypoxia Status: Acute (3) Dehydration Status: Acute (4) Hypokalemia Status: Acute
[2021-04-28] MEDS: ASCORBIC ACID INJ MULTI-DOSE VIAL 1,500 MG in NS 50 ML IV 50 ML IV SCH ×4 (02:06→21:12)
[2021-04-28] MEDS: NS 1000 ML 1,000 ML IV SCH (05:07)
[2021-04-28] MEDS: SOLU-Medrol 40 MG VIAL IVP SCH ×3 (05:08→21:12)
[2021-04-28] MEDS: TESSALON PERLES PO SCH ×3 (05:08→21:12)
[2021-04-28] MEDS: ZOSYN VIAL 3.375 GRAMS 3.375 G in NS 100 ML IV + SPIKE MINIBAG* 100 ML IV SCH ×3 (05:08→21:13)
[2021-04-28] MEDS: PERIACTIN TAB 4 MG PO SCH ×3 (05:08→21:13)
--- NOTE | 2021-04-28 05:22 | RAD ---
PROCEDURE: Chest X-ray 1 View .HISTORY: Dyspnea.TECHNIQUE: AP view .COMPARISON: 04/27/2021.TECHNICAL QUALITY: Satisfactory .FINDINGS:Continued patchy consolidation both lung valentine unchanged mildly increased on the left and unchanged on the right with no pleural fluid or pneumothorax.Stable heart size.IMPRESSION:Unchanged to mildly improved pneumonia.Electronically signed by: Jhoan Moore (Apr 28, 2021 05:19:03)
[2021-04-28 06:23] LABS: BASOPHILS % (AUTO) 0.1 % (0.2-1.0); HEMATOCRIT 40.6 % (42.0-54.0); HEMOGLOBIN 14.2 g/dL (13.5-18.0); LYMPHOCYTES # (AUTO) 0.4 X10^3/uL (1.3-2.9); LYMPHOCYTES % (AUTO) 2.6 % (21.0-51.0); MEAN CORPUSCULAR HEMOGLOBIN 32.5 pg (27.0-34.0); MEAN CORPUSCULAR HGB CONC 35.1 g/dL (33.0-35.0); MEAN CORPUSCULAR VOLUME 92.5 fL (80.0-100.0); MEAN PLATELET VOLUME 8.9 fL (7.4-11.0); MONOCYTES # (AUTO) 0.7 x10^3/uL (0.3-0.8); MONOCYTES % (AUTO) 4.9 % (0.0-13.0); NEUTROPHILS # (AUTO) 12.7 x10^3/uL (2.2-4.8); NEUTROPHILS % (AUTO) 92.4 % (42.0-75.0); PLATELET COUNT 270 X10^3/uL (150.0-450.0); RED BLOOD COUNT 4.39 X10^6/uL (4.7-6.0); RED CELL DISTRIBUTION WIDTH 13.4 % (11.6-16.5); WHITE BLOOD COUNT 13.7 X10^3/uL (3.6-10.0)
[2021-04-28 06:45] LABS: ALANINE AMINOTRANSFERASE 32 Units/L (12-78); ALBUMIN 2.2 g/dL (3.4-5.0); ALKALINE PHOSPHATASE 57 Units/L (46-116); ASPARTATE AMINO TRANSFERASE 45 Units/L (15-37); BLOOD UREA NITROGEN 17 mg/dL (7-18); CALCIUM 7.7 mg/dL (8.5-10.1); CARBON DIOXIDE 26.5 mmol/L (21-32); CHLORIDE 111 mmol/L (98-107); COR CA(FOR HYPOALB) 9.1 mg/dL (8.5-10.1); COR NA(FOR HYPERGLY) 148 mmol/L (136-145); CREATININE 0.92 mg/dL (0.70-1.30); SODIUM 147 mmol/L (136-145); TOTAL PROTEIN 5.4 g/dL (6.4-8.2); eGFR NON BLACK RACES > 60 (>60)
[2021-04-28 07:37] LABS: BAND NEUTROPHILS % 4 % (0-10); PLATELET MORPHOLOGY COMMENT NORMAL (NORMAL)
[2021-04-28] MEDS: IVERMECTIN PO SCH (08:36)
[2021-04-28] MEDS: FLUVOXAMINE MALEATE PO SCH ×2 (08:36→21:14)
[2021-04-28] MEDS: AVODART PO SCH (08:36)
[2021-04-28] MEDS: REMDESIVIR 100 MG in NS 250 ML IV 250 ML IV SCH (08:37)
[2021-04-28] MEDS: LOVENOX INJ 30 MG SYR SC SCH ×2 (08:37→21:15)
[2021-04-28] MEDS: ROBITUSSIN DM PO SCH ×4 (08:37→21:13)
[2021-04-28] MEDS: PEPCID TAB 20 MG PO SCH ×2 (08:37→21:14)
[2021-04-28] MEDS: PROTONIX TAB 40 MG PO SCH ×2 (08:37→21:13)
[2021-04-28] MEDS: VITAMIN D3 125 mcg (5,000 UNITS) PO SCH (08:38)
[2021-04-28] MEDS: VITAMIN A PO SCH (08:38)
[2021-04-28] MEDS: K-DUR TAB 20 MEQ PO PRN (08:38)
[2021-04-28] MEDS: ZINC SULFATE PO SCH (08:38)
[2021-04-28] MEDS: PULMICORT NEB TX 0.5 MG NEB SCH ×2 (08:58→21:55)
[2021-04-28] MEDS: BROVANA IN SCH ×2 (08:58→21:55)
[2021-04-28] MEDS: FLONASE NASAL SPRAY ENOSTRIL SCH (12:14)
[2021-04-28] MEDS: SINGULAIR TAB 10 MG PO SCH (21:13)
[2021-04-28] MEDS: MELATONIN PO SCH (21:14)
[2021-04-28] MEDS: LIPITOR TAB 80 MG PO SCH (21:14)
[2021-04-28] MEDS: XANAX PO PRN (21:30)
[2021-04-29] MEDS: ASCORBIC ACID INJ MULTI-DOSE VIAL 1,500 MG in NS 50 ML IV 50 ML IV SCH ×4 (02:53→21:58)
[2021-04-29] MEDS: PERIACTIN TAB 4 MG PO SCH ×3 (05:11→22:06)
[2021-04-29] MEDS: TESSALON PERLES PO SCH ×3 (05:11→21:59)
[2021-04-29] MEDS: SOLU-Medrol 40 MG VIAL IVP SCH ×3 (05:11→22:06)
[2021-04-29] MEDS: ZOSYN VIAL 3.375 GRAMS 3.375 G in NS 100 ML IV + SPIKE MINIBAG* 100 ML IV SCH ×3 (05:12→22:00)
[2021-04-29 06:07] LABS: BASOPHILS % (AUTO) 0 % (0.2-1.0); HEMATOCRIT 40.4 % (42.0-54.0); LYMPHOCYTES # (AUTO) 0.4 X10^3/uL (1.3-2.9); LYMPHOCYTES % (AUTO) 4.1 % (21.0-51.0); MEAN CORPUSCULAR HEMOGLOBIN 32.5 pg (27.0-34.0); MEAN CORPUSCULAR HGB CONC 34.7 g/dL (33.0-35.0); MEAN CORPUSCULAR VOLUME 93.7 fL (80.0-100.0); MEAN PLATELET VOLUME 8.6 fL (7.4-11.0); MONOCYTES # (AUTO) 0.6 x10^3/uL (0.3-0.8); MONOCYTES % (AUTO) 6.6 % (0.0-13.0); NEUTROPHILS # (AUTO) 7.9 x10^3/uL (2.2-4.8); NEUTROPHILS % (AUTO) 89.3 % (42.0-75.0); PLATELET COUNT 276 X10^3/uL (150.0-450.0); RED BLOOD COUNT 4.31 X10^6/uL (4.7-6.0); RED CELL DISTRIBUTION WIDTH 13.9 % (11.6-16.5); WHITE BLOOD COUNT 8.8 X10^3/uL (3.6-10.0)
[2021-04-29 06:22] LABS: ALANINE AMINOTRANSFERASE 38 Units/L (12-78); ALBUMIN 2.2 g/dL (3.4-5.0); ALKALINE PHOSPHATASE 46 Units/L (46-116); ASPARTATE AMINO TRANSFERASE 54 Units/L (15-37); BLOOD UREA NITROGEN 23 mg/dL (7-18); CALCIUM 7.8 mg/dL (8.5-10.1); CARBON DIOXIDE 26.5 mmol/L (21-32); CHLORIDE 114 mmol/L (98-107); COR CA(FOR HYPOALB) 9.2 mg/dL (8.5-10.1); COR NA(FOR HYPERGLY) 150 mmol/L (136-145); CREATININE 0.96 mg/dL (0.70-1.30); SODIUM 149 mmol/L (136-145); TOTAL PROTEIN 5.1 g/dL (6.4-8.2); eGFR NON BLACK RACES > 60 (>60)
--- NOTE | 2021-04-29 08:31 | RAD ---
HISTORYSOB, COVID+STUDYCHEST, 1 [id number] areas of opacity are present in the left and right lung compatible with bronchopneumonia. Not much change from yesterday.No pleural effusion or pneumothorax.The heart size is magnified. Vascular calcifications are present compatible with atherosclerosis.Bones are unremarkable.IMPRESSION1. Unchanged bronchopneumoniaElectronically signed by: Sheldon Whittington (Apr 29, 2021 08:28:58)
[2021-04-29] MEDS: PULMICORT NEB TX 0.5 MG NEB SCH ×2 (09:35→21:15)
[2021-04-29] MEDS: BROVANA IN SCH ×2 (09:35→21:15)
[2021-04-29] MEDS: LOVENOX INJ 30 MG SYR SC SCH ×2 (10:09→22:08)
[2021-04-29] MEDS: ROBITUSSIN DM PO SCH ×4 (10:09→22:07)
[2021-04-29] MEDS: VITAMIN A PO SCH (10:10)
[2021-04-29] MEDS: PROTONIX TAB 40 MG PO SCH ×2 (10:11→22:08)
[2021-04-29] MEDS: IVERMECTIN PO SCH (10:12)
[2021-04-29] MEDS: PEPCID TAB 20 MG PO SCH ×2 (10:13→22:06)
[2021-04-29] MEDS: AVODART PO SCH (10:14)
[2021-04-29] MEDS: VITAMIN D3 125 mcg (5,000 UNITS) PO SCH (10:15)
[2021-04-29] MEDS: ZINC SULFATE PO SCH (10:15)
[2021-04-29] MEDS: REMDESIVIR 100 MG in NS 250 ML IV 250 ML IV SCH (10:16)
[2021-04-29] MEDS: FLONASE NASAL SPRAY ENOSTRIL SCH (10:16)
[2021-04-29] MEDS: FLUVOXAMINE MALEATE PO SCH ×2 (10:16→22:22)
[2021-04-29] MEDS ORDERED: NS 1/2 1000 ML IV 1,000 ML IV ONE (10:31)
[2021-04-29] MEDS: NS 1/2 1000 ML IV 1,000 ML IV SCH (10:51)
[2021-04-29 11:40] LABS: ABG ALLEN TEST POS; ABG BASE EXCESS 2.8 mmol/L (-2.0-2.0); ABG HCO3 25.9 mmol/L (22-26)
--- NOTE | 2021-04-29 11:55 | PCM.PROG ---
Progress Note - Progress Note for Day of Date of Exam: 04/28/21 - Subjective Subjective: WAS ADMITTED FOR TREATMENT OF PNEUMONIA DUE TO COVID-19, ACUTE RESPIRATORY FAILURE WITH HYPOXIA, DEHYDRATION, AND HYPOKALEMIA. HE DENIES PERTINENT PMH. TODAY, HE IS ALERT AND OREINTED, SITTING UP IN BED ON MORNING ROUNDS. HE REPORTS PERSISTENT COUGH AND SHORTNESS OF BREATH TODAY. SHORNTESS OF BREATH IS WORSE TODAY. PATIENT HAS LABORED BREATHING WITH USE OF ACCESSORY MUSCLES. HE HAS BEEN ON OXYGEN VIA NASAL CANNULA AT 4 LITERS/MINUTE. OXYGEN SATURATIONS HAVE REMAINED 90-94%. WITHOUT OXYGEN, PATIENTS SATURATIONS DROP TO THE LOWER 80s. PATIENTS FAMILY MEMBER REPORTS THAT PATIENT HAS HAD INCREASED ANXIETY DUE TO HIS SPOUSE PASSING AWAY YESTERDAY. ON EXAMINATION, HEART IS REGUL AR IN RATE AND RHYTHM. BILATERAL LUNGS NOTED WITH DIMINISHED LUNG SOUNDS THROUGHOUT. ABDOMEN IS ROUND, SOFT, AND NON-TENDER WITH NORMAL BOWEL SOUNDS NOTED IN ALL QUADRANTS. HER VITALS THIS MORNING ARE: 98.7-73-24-90%-142/75. LABS WERE OBTAINED. ABNORMAL LAB VALUES INCLUDE THE FOLLOWING: WBC 13.7, RBC 4.39, HCT 40.6, SODIUM 147, POTASSIUM 3.4, CHLORIDE 111, GLUCOSE 145, CALCIUM 7.7, FERRITIN 1786, AST 45, CRP 29.30, BNP 195, TOTAL PROTEIN 5.4, ALBUMIN 2.2. BLOOD CULTURES PENDING. CHEST XRAY REVEALED: Continued patchy consolidation both lung valentine unchanged mildly increased on the left and unchanged on the right with no pleural fluid or pneumothorax. Stable heart size. WE WILL CONTINUE WITH R EMDESIVIR, RESPIRATORY TX, NEB TX, ANTIBIOTICS, SOLU-MEDROL, AND CURRENT PLAN OF CARE TODAY. WE WILL ADD ALPRAZOLAM 0.5MG PO BID PRN. OTHERWISE, WE PLAN TO FOLLOW UP WITH AM LABS AND CHEST XRAY AND CONTINUE TO MONITOR. TIME SPENT ON CLINICAL ASSESSMENT, REVIEWING LABS AND IMAGING, DECISION MAKING, AND DOCUMENTATION GREATER THAN 45 MINUTES. - Past Medical Family Social History Past Med/Fam/Surg Hx: No changes since H&P Allergies: Allergies iodine Allergy (Verified 04/26/21 06:23) - Review of Systems ROS: No change since H&P - Vital Signs and I&O's Vital Signs: Temperature 97.6 F Pulse Rate [Right Brachial] 53 Pulse Rate 67 Respiratory Rate 22 Blood Pressure [Left Arm] 163/84 Blood Pressure [Right Arm] 168/74 Blood Pressure 156/70 O2 Sat by Pulse Oximetry 94 Intake and Output: Intake & Output 04/26/21 04/27/21 04/28/21 04/29/21 11:59 11:59 11:59 11:59 Intake Total 1941 3401 / 3401 4097 / 4097 1320 / 1320 Output Total 2200 / 2200 565 / 565 1525 / 1525 701 / 701 Balance -258 / -258 2836 / 2836 2572 / 2572 619 / 619 - Physical Exam Oriented: Normal Eyes: Normal Ear: Normal Nose: Normal Throat: Normal Respiratory: Generalized, Diminished, Rales Cardiovascular: Normal : Normal Auscultation: Bowel Sounds: Normal Palpation: Normal Tenderness: Normal Skin: Decreased Turgur Musculoskeletal: Normal Psychiatric: Normal Mood Description: Calm, Appropriate Affect: Normal Speech Pattern: Clear, Appropriate - Laboratory and Diagnostics Result Diagrams: 04/29/21 05:12 04/29/21 05:12 Labs: Laboratory WBC 8.8 X10^3/uL (3.6-10.0) 04/29/21 05:12 RBC 4.31 X10^6/uL (4.7-6.0) L 04/29/21 05:12 Hgb 14.0 g/dL (13.5-18.0) 04/29/21 05:12 Hct 40.4 % (42.0-54.0) L 04/29/21 05:12 MCV 93.7 fL (80.0-100.0) 04/29/21 05:12 MCH 32.5 pg (27.0-34.0) 04/29/21 05:12 MCHC 34.7 g/dL (33.0-35.0) 04/29/21 05:12 RDW 13.9 % (11.6-16.5) 04/29/21 05:12 Plt Count 276 X10^3/uL (150.0-450.0) 04/29/21 05:12 Plt Count Comment Adequate (ADEQUATE) 04/28/21 04:15 MPV 8.6 fL (7.4-11.0) 04/29/21 05:12 Neut % (Auto) 89.3 % (42.0-75.0) H 04/29/21 05:12 Lymph % (Auto) 4.1 % (21.0-51.0) L 04/29/21 05:12 [place] % (Auto) 6.6 % (0.0-13.0) 04/29/21 05:12 Eos % (Auto) 0.0 % (0.9-2.9) L 04/29/21 05:12 Baso % (Auto) 0 % (0.2-1.0) L 04/29/21 05:12 Neut # (Auto) 7.9 x10^3/uL (2.2-4.8) H 04/29/21 05:12 Lymph # (Auto) 0.4 X10^3/uL (1.3-2.9) L 04/29/21 05:12 [place] # (Auto) 0.6 x10^3/uL (0.3-0.8) 04/29/21 05:12 Eos # (Auto) 0.0 x10^3/uL (0.0-0.2) 04/29/21 05:12 Baso # (Auto) 0.0 X10^3/uL (0.0-0.1) 04/29/21 05:12 Absolute Nucleated RBC 0.1 /100WBC 04/29/21 05:12 Total Counted 100 04/28/21 04:15 Neutrophils % (Manual) 91 % (39-76) H 04/28/21 04:15 Band Neutrophils % 4 % (0-10) 04/28/21 04:15 Lymphocytes % (Manual) 2 % (13-43) L 04/28/21 04:15 Monocytes % (Manual) 3 % (4-9) L 04/28/21 04:15 Metamyelocytes % 2 04/27/21 05:20 Plt Morphology Comment Normal (NORMAL) 04/28/21 04:15 RBC Morphology Normal (NORMAL) 04/28/21 04:15 D-Dimer 0.39 ug/ml (0.0-0.57) 04/29/21 05:12 Sample Site Rra 04/29/21 11:35 ABG pH 7.490 (7.35-7.45) H 04/29/21 11:35 ABG pCO2 34.0 mmHg (35.0-45.0) L 04/29/21 11:35 ABG pO2 56.0 mmHg (80.0-100.0) L 04/29/21 11:35 ABG HCO3 25.9 mmol/L (22-26) 04/29/21 11:35 ABG O2 Saturation 91.0 % (90-100) 04/29/21 11:35 ABG Base Excess 2.8 mmol/L (-2.0-2.0) H 04/29/21 11:35 Jag Test Pos 04/29/21 11:35 A-a Gradient 215.0 mmHg 04/29/21 11:35 FiO2 44.0 04/29/21 11:35 Blood Gas Comments Pt julio well eb 04/29/21 11:35 Sodium 149 mmol/L (136-145) H 04/29/21 05:12 Corrected Sodium 150 mmol/L (136-145) H 04/29/21 05:12 Potassium 3.7 mmol/L (3.5-5.1) 04/29/21 05:12 Chloride 114 mmol/L (98-107) H 04/29/21 05:12 Carbon Dioxide 26.5 mmol/L (21-32) 04/29/21 05:12 BUN 23 mg/dL (7-18) H 04/29/21 05:12 Creatinine 0.96 mg/dL (0.70-1.30) 04/29/21 05:12 Est GFR (MDRD) Af Amer > 60 (>60) 04/29/21 05:12 Est GFR (MDRD) Non-Af > 60 (>60) 04/29/21 05:12 Glucose 160 mg/dL (65-99) H 04/29/21 05:12 Calcium 7.8 mg/dL (8.5-10.1) L 04/29/21 05:12 Corrected Calcium 9.2 mg/dL (8.5-10.1) 04/29/21 05:12 Magnesium 2.2 mg/dL (1.7-2.9) 04/28/21 04:15 Ferritin 1507 ng/mL (26-388) H 04/29/21 05:12 Total Bilirubin 0.60 mg/dL (0.2-1.0) 04/29/21 05:12 AST 54 Units/L (15-37) H 04/29/21 05:12 ALT 38 Units/L (12-78) 04/29/21 05:12 Alkaline Phosphatase 46 Units/L (46-116) 04/29/21 05:12 C-Reactive Protein 16.10 mg/L (0-3.0) H 04/29/21 05:12 B-Natriuretic Peptide 111 pg/mL (0-79) H 04/29/21 05:12 Total Protein 5.1 g/dL (6.4-8.2) L 04/29/21 05:12 Albumin 2.2 g/dL (3.4-5.0) L 04/29/21 05:12 Globulin 2.9 g/dL (2.5-4.5) 04/29/21 05:12 Albumin/Globulin Ratio 0.8 Ratio (1.1-2.1) L 04/29/21 05:12 SARS-CoV-2 (PCR) Positive (NEGATIVE) A 04/24/21 21:30 Influenza Type A (PCR) Negative (NEGATIVE) 04/24/21 21:30 Influenza Type B (PCR) Negative (NEGATIVE) 04/24/21 21:30 RSV (PCR) Negative (NEGATIVE) 04/24/21 21:30 - Plan (1) Pneumonia due to COVID-19 virus Status: Acute Plan: SUPPLEMENTAL OXYGEN, IV FLUIDS, IV REMDESIVIR, IV ANTIBIOTICS, SOLU- MEDROL, NEB TX, RESPIRATORY THERAPY, CONTINUE TO MONITOR. (2) Acute respiratory failure with hypoxia Status: Acute (3) Dehydration Status: Acute (4) Hypokalemia Status: Acute
[2021-04-29] MEDS: ACCUNEB 1.25 MG NEBULE NEB SCH ×3 (12:20→21:15)
--- NOTE | 2021-04-29 12:51 | PCM.PROG ---
Progress Note - Progress Note for Day of Date of Exam: 04/29/21 - Subjective Subjective: WAS ADMITTED FOR TREATMENT OF PNEUMONIA DUE TO COVID-19, ACUTE RESPIRATORY FAILURE WITH HYPOXIA, DEHYDRATION, AND HYPOKALEMIA. HE DENIES PERTINENT PMH. TODAY, HE IS ALERT AND OREINTED, SITTING UP IN BED ON MORNING ROUNDS. HE REPORTS PERSISTENT COUGH AND SHORTNESS OF BREATH TODAY. SHORNTESS OF BREATH IS WORSE TODAY. PATIENT HAS LABORED BREATHING WITH USE OF ACCESSORY MUSCLES. HE HAS BEEN ON OXYGEN VIA NASAL CANNULA AT 6 LITERS/MINUTE. OXYGEN SATURATIONS HAVE REMAINED 90-94%. WITHOUT OXYGEN, PATIENTS SATURATIONS DROP TO THE LOWER 80s, BUT RECOVER TO THE 90s WHEN OXYGEN IS REAPPLIED. ON EXAMINATION, HEART IS REGULAR IN RATE AND RHYTHM. BILATERAL LUNGS NOTED WITH DIMINISHED LUNG SOUNDS THROUGHOUT. ABDOMEN IS ROUND, SOFT, AND NON-TENDER WITH NORMAL BOWEL SOUNDS NOTED IN ALL QUADRANTS. HER VITALS THIS MORNING ARE: 97.6-53-28-163/84. LABS WERE OBTAINED. ABNORMAL LAB VALUES INCLUDE THE FOLLOWING: RBC 4.31, HCT 40.4, SODIUM 149, CHLORIDE 114, BUN 23, GLUCOSE 160, CALCIUM 7.8, FERRITIN 1507, AST 54, CRP 16.10, BNP 111, TOTAL PROTEIN 5.1, ALBUMIN 2.2. BLOOD CULTURES PENDING. CHEST XRAY REVEALED: Patchy areas of opacity are present in the left and right lung compatible with bronchopneumonia. Not much change from yesterday. WE WILL CONTINUE WITH REMDESIVIR, RESPIRATORY TX, NEB TX, ANTIBIOTICS, SOLU- MEDROL, AND CURRENT PLAN OF CARE TODAY. OTHERWISE, WE PLAN TO FOLLOW UP WITH AM LABS AND CHEST XRAY AND CONTINUE TO MONITOR. TIME SPENT ON CLINICAL ASSESSMENT, REVIEWING LABS AND IMAGING, DECISION MAKING, AND DOCUMENTATION GREATER THAN 45 MINUTES. - Past Medical Family Social History Past Med/Fam/Surg Hx: No changes since H&P Allergies: Allergies iodine Allergy (Verified 04/26/21 06:23) - Review of Systems ROS: No change since H&P - Vital Signs and I&O's Vital Signs: Temperature 97.6 F Pulse Rate [Right Brachial] 53 Pulse Rate 67 Respiratory Rate 22 Blood Pressure [Left Arm] 163/84 Blood Pressure [Right Arm] 168/74 Blood Pressure 156/70 O2 Sat by Pulse Oximetry 94 Intake and Output: Intake & Output 04/27/21 04/28/21 04/29/21 04/30/21 11:59 11:59 11:59 11:59 Intake Total 3401 / 3401 4097 / 4097 1320 / 1320 Output Total 565 / 565 1525 / 1525 701 / 701 Balance 2836 / 2836 2572 / 2572 619 / 619 - Physical Exam Oriented: Normal Eyes: Normal Ear: Normal Nose: Normal Throat: Normal Respiratory: Generalized, Diminished, Rales Cardiovascular: Normal : Normal Auscultation: Bowel Sounds: Normal Palpation: Normal Tenderness: Normal Skin: Decreased Turgur Musculoskeletal: Normal Psychiatric: Normal Mood Description: Calm, Appropriate Affect: Normal Speech Pattern: Clear, Appropriate - Laboratory and Diagnostics Result Diagrams: 04/29/21 05:12 04/29/21 05:12 Labs: Laboratory WBC 8.8 X10^3/uL (3.6-10.0) 04/29/21 05:12 RBC 4.31 X10^6/uL (4.7-6.0) L 04/29/21 05:12 Hgb 14.0 g/dL (13.5-18.0) 04/29/21 05:12 Hct 40.4 % (42.0-54.0) L 04/29/21 05:12 MCV 93.7 fL (80.0-100.0) 04/29/21 05:12 MCH 32.5 pg (27.0-34.0) 04/29/21 05:12 MCHC 34.7 g/dL (33.0-35.0) 04/29/21 05:12 RDW 13.9 % (11.6-16.5) 04/29/21 05:12 Plt Count 276 X10^3/uL (150.0-450.0) 04/29/21 05:12 Plt Count Comment Adequate (ADEQUATE) 04/28/21 04:15 MPV 8.6 fL (7.4-11.0) 04/29/21 05:12 Neut % (Auto) 89.3 % (42.0-75.0) H 04/29/21 05:12 Lymph % (Auto) 4.1 % (21.0-51.0) L 04/29/21 05:12 [place] % (Auto) 6.6 % (0.0-13.0) 04/29/21 05:12 Eos % (Auto) 0.0 % (0.9-2.9) L 04/29/21 05:12 Baso % (Auto) 0 % (0.2-1.0) L 04/29/21 05:12 Neut # (Auto) 7.9 x10^3/uL (2.2-4.8) H 04/29/21 05:12 Lymph # (Auto) 0.4 X10^3/uL (1.3-2.9) L 04/29/21 05:12 [place] # (Auto) 0.6 x10^3/uL (0.3-0.8) 04/29/21 05:12 Eos # (Auto) 0.0 x10^3/uL (0.0-0.2) 04/29/21 05:12 Baso # (Auto) 0.0 X10^3/uL (0.0-0.1) 04/29/21 05:12 Absolute Nucleated RBC 0.1 /100WBC 04/29/21 05:12 Total Counted 100 04/28/21 04:15 Neutrophils % (Manual) 91 % (39-76) H 04/28/21 04:15 Band Neutrophils % 4 % (0-10) 04/28/21 04:15 Lymphocytes % (Manual) 2 % (13-43) L 04/28/21 04:15 Monocytes % (Manual) 3 % (4-9) L 04/28/21 04:15 Metamyelocytes % 2 04/27/21 05:20 Plt Morphology Comment Normal (NORMAL) 04/28/21 04:15 RBC Morphology Normal (NORMAL) 04/28/21 04:15 D-Dimer 0.39 ug/ml (0.0-0.57) 04/29/21 05:12 Sample Site Rra 04/29/21 11:35 ABG pH 7.490 (7.35-7.45) H 04/29/21 11:35 ABG pCO2 34.0 mmHg (35.0-45.0) L 04/29/21 11:35 ABG pO2 56.0 mmHg (80.0-100.0) L 04/29/21 11:35 ABG HCO3 25.9 mmol/L (22-26) 04/29/21 11:35 ABG O2 Saturation 91.0 % (90-100) 04/29/21 11:35 ABG Base Excess 2.8 mmol/L (-2.0-2.0) H 04/29/21 11:35 Jag Test Pos 04/29/21 11:35 A-a Gradient 215.0 mmHg 04/29/21 11:35 FiO2 44.0 04/29/21 11:35 Blood Gas Comments Pt julio well eb 04/29/21 11:35 Sodium 149 mmol/L (136-145) H 04/29/21 05:12 Corrected Sodium 150 mmol/L (136-145) H 04/29/21 05:12 Potassium 3.7 mmol/L (3.5-5.1) 04/29/21 05:12 Chloride 114 mmol/L (98-107) H 04/29/21 05:12 Carbon Dioxide 26.5 mmol/L (21-32) 04/29/21 05:12 BUN 23 mg/dL (7-18) H 04/29/21 05:12 Creatinine 0.96 mg/dL (0.70-1.30) 04/29/21 05:12 Est GFR (MDRD) Af Amer > 60 (>60) 04/29/21 05:12 Est GFR (MDRD) Non-Af > 60 (>60) 04/29/21 05:12 Glucose 160 mg/dL (65-99) H 04/29/21 05:12 Calcium 7.8 mg/dL (8.5-10.1) L 04/29/21 05:12 Corrected Calcium 9.2 mg/dL (8.5-10.1) 04/29/21 05:12 Magnesium 2.2 mg/dL (1.7-2.9) 04/28/21 04:15 Ferritin 1507 ng/mL (26-388) H 04/29/21 05:12 Total Bilirubin 0.60 mg/dL (0.2-1.0) 04/29/21 05:12 AST 54 Units/L (15-37) H 04/29/21 05:12 ALT 38 Units/L (12-78) 04/29/21 05:12 Alkaline Phosphatase 46 Units/L (46-116) 04/29/21 05:12 C-Reactive Protein 16.10 mg/L (0-3.0) H 04/29/21 05:12 B-Natriuretic Peptide 111 pg/mL (0-79) H 04/29/21 05:12 Total Protein 5.1 g/dL (6.4-8.2) L 04/29/21 05:12 Albumin 2.2 g/dL (3.4-5.0) L 04/29/21 05:12 Globulin 2.9 g/dL (2.5-4.5) 04/29/21 05:12 Albumin/Globulin Ratio 0.8 Ratio (1.1-2.1) L 04/29/21 05:12 SARS-CoV-2 (PCR) Positive (NEGATIVE) A 04/24/21 21:30 Influenza Type A (PCR) Negative (NEGATIVE) 04/24/21 21:30 Influenza Type B (PCR) Negative (NEGATIVE) 04/24/21 21:30 RSV (PCR) Negative (NEGATIVE) 04/24/21 21:30 - Plan (1) Pneumonia due to COVID-19 virus Status: Acute Plan: SUPPLEMENTAL OXYGEN, IV FLUIDS, IV REMDESIVIR, IV ANTIBIOTICS, SOLU- MEDROL, NEB TX, RESPIRATORY THERAPY, CONTINUE TO MONITOR. (2) Acute respiratory failure with hypoxia Status: Acute (3) Dehydration Status: Acute (4) Hypokalemia Status: Acute
[2021-04-29] MEDS ORDERED: NORCO 5/325 MG TAB PO PRN (15:25)
[2021-04-29] MEDS: NYSTATIN SUSP MT SCH ×2 (17:31→22:22)
[2021-04-29] MEDS: MAGIC MOUTHWASH MT SCH ×2 (17:37→22:12)
[2021-04-29] MEDS: COLACE CAP 100 MG PO SCH (22:05)
[2021-04-29] MEDS: SINGULAIR TAB 10 MG PO SCH (22:07)
[2021-04-29] MEDS: APRESOLINE INJ 20 MG VIAL IVP PRN (22:07)
[2021-04-29] MEDS: MELATONIN PO SCH (22:08)
[2021-04-29] MEDS: MILK OF MAGNESIA PO SCH (22:08)
[2021-04-29] MEDS: LIPITOR TAB 80 MG PO SCH (22:09)
[2021-04-30] MEDS: NS 1/2 1000 ML IV 1,000 ML IV SCH ×4 (00:57→21:18)
[2021-04-30] MEDS: ASCORBIC ACID INJ MULTI-DOSE VIAL 1,500 MG in NS 50 ML IV 50 ML IV SCH ×4 (03:14→22:27)
[2021-04-30] MEDS: APRESOLINE INJ 20 MG VIAL IVP PRN (03:46)
[2021-04-30] MEDS: SOLU-Medrol 40 MG VIAL IVP SCH ×3 (05:13→21:14)
[2021-04-30] MEDS: PERIACTIN TAB 4 MG PO SCH ×3 (05:13→21:14)
[2021-04-30] MEDS: ZOSYN VIAL 3.375 GRAMS 3.375 G in NS 100 ML IV + SPIKE MINIBAG* 100 ML IV SCH ×3 (05:13→21:12)
[2021-04-30] MEDS: TESSALON PERLES PO SCH ×3 (05:13→21:14)
--- NOTE | 2021-04-30 05:45 | RAD ---
PROCEDURE: Chest X-ray 1 View .HISTORY: Dyspnea.TECHNIQUE: AP view .COMPARISON: 04/29/2021.TECHNICAL QUALITY: Satisfactory .FINDINGS:Unremarkable cardio mediastinal silhouette.Normal central vascularity.Unchanged patchy consolidation left base and right midlung field with no pleural fluid or pneumothorax.IMPRESSION:Unchanged bilateral pneumonia.Electronically signed by: Jhoan Moore (Apr 30, 2021 05:44:05)
[2021-04-30 06:20] LABS: BASOPHILS % (AUTO) 0.2 % (0.2-1.0); HEMATOCRIT 41.7 % (42.0-54.0); HEMOGLOBIN 14.4 g/dL (13.5-18.0); LYMPHOCYTES # (AUTO) 0.4 X10^3/uL (1.3-2.9); LYMPHOCYTES % (AUTO) 3.5 % (21.0-51.0); MEAN CORPUSCULAR HEMOGLOBIN 32.1 pg (27.0-34.0); MEAN CORPUSCULAR HGB CONC 34.5 g/dL (33.0-35.0); MEAN PLATELET VOLUME 8.8 fL (7.4-11.0); MONOCYTES # (AUTO) 0.7 x10^3/uL (0.3-0.8); MONOCYTES % (AUTO) 6.5 % (0.0-13.0); NEUTROPHILS # (AUTO) 9.2 x10^3/uL (2.2-4.8); NEUTROPHILS % (AUTO) 89.8 % (42.0-75.0); PLATELET COUNT 311 X10^3/uL (150.0-450.0); RED BLOOD COUNT 4.48 X10^6/uL (4.7-6.0); RED CELL DISTRIBUTION WIDTH 13.7 % (11.6-16.5); WHITE BLOOD COUNT 10.2 X10^3/uL (3.6-10.0)
[2021-04-30 06:40] LABS: ALANINE AMINOTRANSFERASE 65 Units/L (12-78); ALBUMIN 2.3 g/dL (3.4-5.0); ALKALINE PHOSPHATASE 55 Units/L (46-116); ASPARTATE AMINO TRANSFERASE 78 Units/L (15-37); BLOOD UREA NITROGEN 22 mg/dL (7-18); CALCIUM 7.8 mg/dL (8.5-10.1); CARBON DIOXIDE 28.2 mmol/L (21-32); CHLORIDE 107 mmol/L (98-107); COR CA(FOR HYPOALB) 9.2 mg/dL (8.5-10.1); COR NA(FOR HYPERGLY) 145 mmol/L (136-145); CREATININE 1.03 mg/dL (0.70-1.30); SODIUM 142 mmol/L (136-145); TOTAL PROTEIN 5.3 g/dL (6.4-8.2); eGFR NON BLACK RACES > 60 (>60)
[2021-04-30] MEDS: FLONASE NASAL SPRAY ENOSTRIL SCH (09:00)
[2021-04-30] MEDS: AVODART PO SCH (09:00)
[2021-04-30] MEDS: MAGIC MOUTHWASH MT SCH ×3 (09:00→21:19)
[2021-04-30] MEDS: IVERMECTIN PO SCH (09:00)
[2021-04-30] MEDS: LOVENOX INJ 30 MG SYR SC SCH ×2 (09:00→21:20)
[2021-04-30] MEDS: FLUVOXAMINE MALEATE PO SCH ×2 (09:00→21:15)
[2021-04-30] MEDS: PEPCID TAB 20 MG PO SCH ×2 (09:01→21:15)
[2021-04-30] MEDS: NYSTATIN SUSP MT SCH ×3 (09:01→21:19)
[2021-04-30] MEDS: PROTONIX TAB 40 MG PO SCH ×2 (09:01→21:18)
[2021-04-30] MEDS: ROBITUSSIN DM PO SCH ×3 (09:02→21:16)
[2021-04-30] MEDS: VITAMIN A PO SCH (09:02)
[2021-04-30] MEDS: VITAMIN D3 125 mcg (5,000 UNITS) PO SCH (09:03)
[2021-04-30] MEDS: ZINC SULFATE PO SCH (09:03)
[2021-04-30] MEDS: ACCUNEB 1.25 MG NEBULE NEB SCH ×4 (09:35→20:59)
[2021-04-30] MEDS: BROVANA IN SCH ×2 (09:35→20:59)
[2021-04-30] MEDS: PULMICORT NEB TX 0.5 MG NEB SCH ×2 (09:35→20:59)
[2021-04-30] MEDS ORDERED: NS 1/2 1000 ML IV 1,000 ML IV ONE (11:46)
[2021-04-30 11:55] LABS: ABG ALLEN TEST POS; ABG BASE EXCESS 5.8 mmol/L (-2.0-2.0); ABG HCO3 28.2 mmol/L (22-26)
[2021-04-30] MEDS: SINGULAIR TAB 10 MG PO SCH (21:14)
[2021-04-30] MEDS: MILK OF MAGNESIA PO SCH (21:15)
[2021-04-30] MEDS: COLACE CAP 100 MG PO SCH (21:15)
[2021-04-30] MEDS: LIPITOR TAB 80 MG PO SCH (21:16)
[2021-04-30] MEDS: MELATONIN PO SCH (21:17)
[2021-05-01] MEDS: ASCORBIC ACID INJ MULTI-DOSE VIAL 1,500 MG in NS 50 ML IV 50 ML IV SCH ×4 (03:07→21:14)
[2021-05-01 05:18] LABS: ABG ALLEN TEST POS; ABG BASE EXCESS 6.4 mmol/L (-2.0-2.0); ABG HCO3 29.2 mmol/L (22-26)
[2021-05-01] MEDS: ZOSYN VIAL 3.375 GRAMS 3.375 G in NS 100 ML IV + SPIKE MINIBAG* 100 ML IV SCH ×3 (05:26→21:16)
[2021-05-01] MEDS: PERIACTIN TAB 4 MG PO SCH ×3 (05:26→21:14)
[2021-05-01] MEDS: TESSALON PERLES PO SCH ×3 (05:26→21:13)
[2021-05-01] MEDS: SOLU-Medrol 40 MG VIAL IVP SCH (05:27)
[2021-05-01 06:19] LABS: BASOPHILS % (AUTO) 0.1 % (0.2-1.0); HEMATOCRIT 41.2 % (42.0-54.0); LYMPHOCYTES # (AUTO) 0.4 X10^3/uL (1.3-2.9); LYMPHOCYTES % (AUTO) 3.6 % (21.0-51.0); MEAN CORPUSCULAR HEMOGLOBIN 31.9 pg (27.0-34.0); MEAN CORPUSCULAR HGB CONC 33.9 g/dL (33.0-35.0); MEAN CORPUSCULAR VOLUME 94.2 fL (80.0-100.0); MEAN PLATELET VOLUME 8.7 fL (7.4-11.0); MONOCYTES # (AUTO) 0.8 x10^3/uL (0.3-0.8); MONOCYTES % (AUTO) 6.8 % (0.0-13.0); NEUTROPHILS % (AUTO) 89.5 % (42.0-75.0); PLATELET COUNT 319 X10^3/uL (150.0-450.0); RED BLOOD COUNT 4.37 X10^6/uL (4.7-6.0); RED CELL DISTRIBUTION WIDTH 13.5 % (11.6-16.5); WHITE BLOOD COUNT 11.2 X10^3/uL (3.6-10.0)
[2021-05-01 06:21] LABS: ALANINE AMINOTRANSFERASE 75 Units/L (12-78); ALBUMIN 2.1 g/dL (3.4-5.0); ALKALINE PHOSPHATASE 50 Units/L (46-116); ASPARTATE AMINO TRANSFERASE 76 Units/L (15-37); BLOOD UREA NITROGEN 20 mg/dL (7-18); CALCIUM 7.5 mg/dL (8.5-10.1); CARBON DIOXIDE 28.9 mmol/L (21-32); CHLORIDE 106 mmol/L (98-107); COR NA(FOR HYPERGLY) 143 mmol/L (136-145); CREATININE 1.06 mg/dL (0.70-1.30); SODIUM 141 mmol/L (136-145); TOTAL PROTEIN 4.9 g/dL (6.4-8.2); eGFR NON BLACK RACES > 60 (>60)
--- NOTE | 2021-05-01 08:45 | RAD ---
HISTORYSOB, COVID+ Relevant Clinical InformationSTUDYCHEST, 1 VIEWCOMPARISONAugust 2020FINDINGSThe patient is rotated. The cardiac silhouette is relatively stable. Diffuse airspace opacities are again demonstrated bilaterally most pronounced within the left lower lobe. No significant interval improvement is appreciated. The aortic knob is partially calcified.IMPRESSIONDiffuse airspace disease bilaterally with no significant interval improvement since prior exam as noted above.Electronically signed by: MARIANA OLIVER (May 01, 2021 08:43:47)
[2021-05-01] MEDS: ACCUNEB 1.25 MG NEBULE NEB SCH ×4 (09:10→21:20)
[2021-05-01] MEDS: BROVANA IN SCH ×2 (09:10→21:20)
[2021-05-01] MEDS: PULMICORT NEB TX 0.5 MG NEB SCH ×2 (09:10→21:20)
[2021-05-01] MEDS: MAGIC MOUTHWASH MT SCH ×4 (09:30→21:13)
[2021-05-01] MEDS: NYSTATIN SUSP MT SCH ×4 (09:31→21:14)
[2021-05-01] MEDS: APRESOLINE INJ 20 MG VIAL IVP PRN (09:32)
[2021-05-01] MEDS: XANAX PO PRN (09:32)
[2021-05-01] MEDS: ZINC SULFATE PO SCH (09:32)
[2021-05-01] MEDS: VITAMIN D3 125 mcg (5,000 UNITS) PO SCH (09:32)
[2021-05-01] MEDS: ROBITUSSIN DM PO SCH ×4 (09:33→21:13)
[2021-05-01] MEDS: PEPCID TAB 20 MG PO SCH ×2 (09:33→21:15)
[2021-05-01] MEDS: VITAMIN A PO SCH (09:33)
[2021-05-01] MEDS: PROTONIX TAB 40 MG PO SCH ×2 (09:34→21:15)
[2021-05-01] MEDS: FLUVOXAMINE MALEATE PO SCH ×2 (09:34→21:16)
[2021-05-01] MEDS: FLONASE NASAL SPRAY ENOSTRIL SCH (09:34)
[2021-05-01] MEDS: AVODART PO SCH (09:35)
[2021-05-01] MEDS: IVERMECTIN PO SCH (09:37)
[2021-05-01] MEDS: ELIQUIS PO SCH ×2 (10:16→21:19)
[2021-05-01] MEDS: DECADRON TAB PO SCH (10:16)
[2021-05-01] MEDS: NS 1/2 1000 ML IV 1,000 ML IV SCH ×2 (17:30→21:16)
[2021-05-01 20:56] VITALS: BMI 29.5
[2021-05-01] MEDS: LIPITOR TAB 80 MG PO SCH (21:13)
[2021-05-01] MEDS: MILK OF MAGNESIA PO SCH (21:13)
[2021-05-01] MEDS: COLACE CAP 100 MG PO SCH (21:13)
[2021-05-01] MEDS: MELATONIN PO SCH (21:14)
[2021-05-01] MEDS: SINGULAIR TAB 10 MG PO SCH (21:15)
[2021-05-02] MEDS: ASCORBIC ACID INJ MULTI-DOSE VIAL 1,500 MG in NS 50 ML IV 50 ML IV SCH ×2 (03:05→09:28)
[2021-05-02] MEDS: ZOSYN VIAL 3.375 GRAMS 3.375 G in NS 100 ML IV + SPIKE MINIBAG* 100 ML IV SCH (05:38)
[2021-05-02] MEDS: TESSALON PERLES PO SCH (05:38)
[2021-05-02] MEDS: PERIACTIN TAB 4 MG PO SCH (05:39)
[2021-05-02 06:30] LABS: BASOPHILS % (AUTO) 0.1 % (0.2-1.0); HEMATOCRIT 41.3 % (42.0-54.0); HEMOGLOBIN 14.1 g/dL (13.5-18.0); LYMPHOCYTES # (AUTO) 0.7 X10^3/uL (1.3-2.9); LYMPHOCYTES % (AUTO) 5.9 % (21.0-51.0); MEAN CORPUSCULAR HEMOGLOBIN 31.9 pg (27.0-34.0); MEAN CORPUSCULAR HGB CONC 34.2 g/dL (33.0-35.0); MEAN CORPUSCULAR VOLUME 93.4 fL (80.0-100.0); MEAN PLATELET VOLUME 8.5 fL (7.4-11.0); MONOCYTES % (AUTO) 8.9 % (0.0-13.0); NEUTROPHILS # (AUTO) 9.5 x10^3/uL (2.2-4.8); NEUTROPHILS % (AUTO) 85.1 % (42.0-75.0); PLATELET COUNT 344 X10^3/uL (150.0-450.0); RED BLOOD COUNT 4.43 X10^6/uL (4.7-6.0); RED CELL DISTRIBUTION WIDTH 14.1 % (11.6-16.5); WHITE BLOOD COUNT 11.1 X10^3/uL (3.6-10.0)
[2021-05-02 06:46] LABS: ALANINE AMINOTRANSFERASE 100 Units/L (12-78); ALBUMIN 2.3 g/dL (3.4-5.0); ALKALINE PHOSPHATASE 54 Units/L (46-116); ASPARTATE AMINO TRANSFERASE 95 Units/L (15-37); BLOOD UREA NITROGEN 23 mg/dL (7-18); CALCIUM 7.6 mg/dL (8.5-10.1); CARBON DIOXIDE 30.2 mmol/L (21-32); CHLORIDE 106 mmol/L (98-107); COR NA(FOR HYPERGLY) 142 mmol/L (136-145); CREATININE 1.09 mg/dL (0.70-1.30); SODIUM 141 mmol/L (136-145); TOTAL PROTEIN 5.1 g/dL (6.4-8.2); eGFR NON BLACK RACES > 60 (>60)
[2021-05-02] MEDS: APRESOLINE INJ 20 MG VIAL IVP PRN (08:30)
[2021-05-02] MEDS: PULMICORT NEB TX 0.5 MG NEB SCH (08:56)
[2021-05-02] MEDS: BROVANA IN SCH (08:56)
[2021-05-02] MEDS: ACCUNEB 1.25 MG NEBULE NEB SCH (08:56)
[2021-05-02] MEDS: MAGIC MOUTHWASH MT SCH (09:27)
[2021-05-02] MEDS: VITAMIN D3 125 mcg (5,000 UNITS) PO SCH (09:28)
[2021-05-02] MEDS: VITAMIN A PO SCH (09:28)
[2021-05-02] MEDS: ZINC SULFATE PO SCH (09:28)
[2021-05-02] MEDS: NYSTATIN SUSP MT SCH (09:28)
[2021-05-02] MEDS: PEPCID TAB 20 MG PO SCH (09:29)
[2021-05-02] MEDS: PROTONIX TAB 40 MG PO SCH (09:29)
[2021-05-02] MEDS: FLUVOXAMINE MALEATE PO SCH (09:29)
[2021-05-02] MEDS: IVERMECTIN PO SCH (09:29)
[2021-05-02] MEDS: ROBITUSSIN DM PO SCH (09:29)
[2021-05-02] MEDS: FLONASE NASAL SPRAY ENOSTRIL SCH (09:30)
[2021-05-02] MEDS: AVODART PO SCH (09:30)
[2021-05-02] MEDS: ELIQUIS PO SCH (09:30)
[2021-05-02] MEDS: DECADRON TAB PO SCH (09:30)
[2021-05-02 11:24] VITALS: BP 159/68
== END 2021-05-02 11:51 | disposition home or self-care (01) | DRG 177 ==
LOC: ER 20:25 → OBS 04-25 00:40 → MED/SURG 04-26 14:54
PROVIDERS: ADMIT Internal Medicine; ATTEND Internal Medicine
DX: R79.89 Other specified abnormal findings of blood chemistry; J12.82 Pneumonia due to coronavirus disease 2019; R79.82 Elevated C-reactive protein (CRP); J96.01 Acute respiratory failure with hypoxia; E87.6 Hypokalemia; E86.0 Dehydration; N40.0 Benign prostatic hyperplasia without lower urinary tract symptoms; I10 Essential (primary) hypertension; U07.1 COVID-19; R26.89 Other abnormalities of gait and mobility; J44.1 Chronic obstructive pulmonary disease with (acute) exacerbation